=== PATIENT | female | born 1950 | race Caucasian/White ===

== ENCOUNTER 2016-06-24 22:42 | Emergency (ER) | payer MEDICAID ==
[~2016-06-24] VITALS: Ht 175.3 cm; Wt 97.4 kg
[~2016-06-24 22:42] MED LIST: ACET-2723 PO; ALBU1.252 AEROSOL; ALBU8.5H INH; ASPI-557 PO; BENZ1TAB7 PO; BISA10SU8 RECTALLY; BUSP5TAB3 PO; CLOP75TA PO; DOCU-168 PO; DULO30CA2 PO; ERGO500044 PO; FLUT1DIS3 ORAL INH; FURO20TA4 PO; HYDR-4246 PO; LEVO75TA10 PO; LORA10TA62 PO; MAGN800O PO; METF500T4 PO; METH500T6 PO; METO25TA6 PO; NICO1PAT16 TOP; ONDA4TAB4 PO; POLY17PO6 PO; PREG25CA PO; RISP1TAB27 PO; SIME80TA PO; TIOT18CA3 ORAL INH; TOPI50TA57 PO; TRAZ-173 PO; [UNRECOGNIZED DRUG - CODE] TOP
--- OUTSIDE RECORDS SUMMARY | 2016-06-24 22:47 | XMS REPORT ---
Author Author Marlys Zavala [facility] eClinicalWorks Address Unknown Phone Unavailable Care Team Providers Care Cop Winder Name Role Phone Marlys Zavala Unavailable Allergies No Known Allergies Problems No Known Problems Medications No Known Medications Results No Known Results Summary Purpose eClinicalWorks Submission
--- OUTSIDE RECORDS SUMMARY | 2016-06-24 22:47 | XMS REPORT ---
Author Author Delbert Quick Organization [facility] Address [address] [place] [address] Care Team Providers Care Real Estate Intern Name Role Phone Abdelrahman Delbert Unavailable [phone] PROBLEMS Type Condition ICD9-CM Code [id number] Code Onset Dates Condition Status SNOMED Code Problem Hypertension, malignant (essential) 401.0 Active 50362570 Problem Unspecified hypothyroidism 244.9 Active 55313426 Assessment Unspecified hypothyroidism 244.9 Mar, Active 59448558 Problem Hypertension, benign (essential) 401.1 Active 1149772 Problem Bipolar disorder, unspecified 296.80 Active 39580202 ALLERGIES Substance Reaction Event Type Date Status N.K.D.A. Unknown Non Drug Allergy Mar, Unknown SOCIAL HISTORY No smoking Hx information available PLAN OF CARE VITAL SIGNS Height 68.75 in 2014-04-22 Weight 176.4 lbs 2014-04-22 BMI 26.24 kg/m2 2014-04-22 Heart Rate 77 /min 2014-04-22 Temperature 97.5 degrees Fahrenheit 2014-04-22 Blood pressure systolic 170 mm Hg 2014-04-22 Blood pressure diastolic 81 mm Hg 2014-04-22 MEDICATIONS Medication Instructions Dosage Frequency Start Date End Date Duration Status Celexa 20 MG Orally Once a day 1 tablet 24h Active Depakote ER 500 MG Orally 1 in the morning 2 at bed time Active Levothyroxine Sodium 150 MCG Orally Once a day 1 tablet on an empty stomach in the morning 24h Active Lisinopril 5 MG Orally Once a day 1 tablet 24h Active Seroquel 50 MG Orally Once a day 1 tablet at bedtime 24h Active Gabapentin 300 MG Orally Three times a day 1 capsule 8h Active Metoprolol Succinate 25 MG Orally Once a day 1 tablet 24h Active PredniSONE 10 MG Orally Once a day 1 tablet 24h Active BuSpar 15mg 1 tablet 12h Active Hydrocodone-Acetaminophen 10-325 MG Orally every 6 hrs 1 tablet as needed 6h Active RESULTS No Results PROCEDURES Procedure Date Ordered Related Diagnosis Body Site COMPREHEN METABOLIC PANEL Apr 22, 2014 COMPLETE CBC W/AUTO DIFF WBC Apr 22, 2014 URINALYSIS, AUTO, W/O SCOPE Apr 22, 2014 ASSAY THYROID STIM HORMONE Apr 22, 2014 Office Visit, Est Pt., Level 3 Apr 22, 2014 IMMUNIZATIONS No Known Immunizations
--- OUTSIDE RECORDS SUMMARY | 2016-06-24 22:47 | XMS REPORT ---
Author Delbert Ordaz [facility] eClinicalWorks Address Unknown Phone Unavailable Care Team Providers Care Motor Electrician Name Role Phone Delbert Quick CP Unavailable Allergies, Adverse Reactions, Alerts Substance Reaction Event Type N.K.D.A. Info Not Available Non Drug Allergy Problems Problem Type Condition Code Onset Dates Condition Status Problem Unspecified hypothyroidism 244.9 Active Problem Hypertension, benign (essential) 401.1 Active Problem Hypertension, malignant (essential) 401.0 Active Assessment Hypertension, benign (essential) 401.1 Active Problem Bipolar disorder, unspecified 296.80 Active Assessment Unspecified hypothyroidism 244.9 Active Medications Medication Code System Code Instructions Start Date End Date Status Dosage PredniSONE [facility] [address]-95 10 MG Orally Once a day 1 tablet Seroquel [facility] [address]-86 50 MG Orally Once a day 1 tablet at bedtime BuSpar NDC 0 15mg twice a day 1 tablet Hydrocodone-Acetaminophen [facility] [address]-35 10-325 MG Orally every 6 hrs 1 tablet as needed Levothyroxine Sodium [facility] [address]-54 150 MCG Orally Once a day 1 tablet on an empty stomach in the morning Depakote ER [facility] [address]-49 500 MG Orally 1 in the morning 2 at bed time not defined Metoprolol Succinate [facility] [address]-56 25 MG Orally Once a day 1 tablet Gabapentin [facility] [address]-94 300 MG Orally Three times a day 1 capsule Lisinopril [facility] [address]-58 5 MG Orally Once a day 1 tablet Celexa [facility] [address]-98 20 MG Orally Once a day 1 tablet Procedures Procedure Coding System Code Date COMPLETE CBC W/AUTO DIFF WBC CPT-4 09025 Apr 22, 2014 ASSAY THYROID STIM HORMONE CPT-4 69370 Apr 22, 2014 COMPREHEN METABOLIC PANEL CPT-4 58366 Apr 22, 2014 Office Visit, Est Pt., Level 3 CPT-4 90808 Apr 22, 2014 URINALYSIS, AUTO, W/O SCOPE CPT-4 70799 Apr 22, 2014 Vital Signs Date/Time: Apr 22, 2014 BMI 26.24 Index Weight 176.4 lbs Height 68.75 in Blood Pressure Diastolic 81 mm Hg Blood Pressure Systolic 170 mm Hg Temperature 97.5 F Cardiac Monitoring Heart Rate 77 /min Results No Known Results Summary Purpose eClinicalWorks Submission
--- OUTSIDE RECORDS SUMMARY | 2016-06-24 22:47 | XMS REPORT ---
Author Author Delbert Quick Organization [facility] Address [address] [place] [address] Care Team Providers Care Sql Engineer Name Role Phone Abdelrahman Delbert Unavailable [phone] PROBLEMS Type Condition ICD9-CM Code [id number] Code Onset Dates Condition Status SNOMED Code Problem Hypertension, malignant (essential) 401.0 Active 99643514 Problem Unspecified hypothyroidism 244.9 Active 32718423 Assessment Unspecified hypothyroidism 244.9 Mar, Active 17968247 Problem Hypertension, benign (essential) 401.1 Active 9011738 Problem Bipolar disorder, unspecified 296.80 Active 99792681 ALLERGIES Substance Reaction Event Type Date Status [...]
[2016-06-24 22:48] VITALS: Ht 175.3 cm; Wt 97.4 kg
--- OUTSIDE RECORDS SUMMARY | 2016-06-24 22:48 | XMS REPORT ---
Author Author Delbert Quick Organization [facility] Address [address] [place] [address] Care Team Providers Care Computer Lab Assistant Name Role Phone Abdelrahman Delbert Unavailable [phone] PROBLEMS Type Condition ICD9-CM Code SEO39-TD Code Onset Dates Condition Status SNOMED Code Problem Hypertension, malignant (essential) 401.0 Active 86558086 Problem Unspecified hypothyroidism 244.9 Active 32642422 Assessment Unspecified hypothyroidism 244.9 Mar, Active 71730161 Problem Hypertension, benign (essential) 401.1 Active 5042479 Problem Bipolar disorder, unspecified 296.80 Active 33827622 ALLERGIES Substance Reaction Event Type Date Status [...]
--- OUTSIDE RECORDS SUMMARY | 2016-06-24 22:48 | XMS REPORT ---
Author Author Delbert Quick Organization [facility] Address [address] [place] [address] Care Team Providers Care Scratch Polisher Name Role Phone Abdelrahman Delbert Unavailable [phone] PROBLEMS Type Condition ICD9-CM Code WHB55-CC Code Onset Dates Condition Status SNOMED Code Problem Hypertension, malignant (essential) 401.0 Active 57747067 Problem Unspecified hypothyroidism 244.9 Active 32899789 Assessment Unspecified hypothyroidism 244.9 Mar, Active 78682435 Problem Hypertension, benign (essential) 401.1 Active 8553703 Problem Bipolar disorder, unspecified 296.80 Active 47993525 ALLERGIES Substance Reaction Event Type Date Status [...]
--- OUTSIDE RECORDS SUMMARY | 2016-06-24 22:49 | XMS REPORT ---
Author Author Delbert Quick Organization [facility] Address [address] [place] [address] Care Team Providers Care Diesel Engine Specialist Name Role Phone Abdelrahman Delbert Unavailable [phone] PROBLEMS Type Condition ICD9-CM Code UZQ70-HQ Code Onset Dates Condition Status SNOMED Code Problem Hypertension, malignant (essential) 401.0 Active 47057389 Problem Unspecified hypothyroidism 244.9 Active 71343902 Assessment Unspecified hypothyroidism 244.9 Mar, Active 99439426 Problem Hypertension, benign (essential) 401.1 Active 5371470 Problem Bipolar disorder, unspecified 296.80 Active 28139302 ALLERGIES Substance Reaction Event Type Date Status [...]
--- OUTSIDE RECORDS SUMMARY | 2016-06-24 22:49 | XMS REPORT | Continuity of Care Document ---
Author Author [facility] Organization [facility] Address Unknown Phone Unavailable Allergies Active Description Code Type Severity Reaction Onset Reported/Identified Relationship to Patient Clinical Status Yes No Known Allergies No Known Allergies Drug Allergy Unknown N/A 03/20/2014 Medications Problems Date Dx Coded Attending Type Code Diagnosis Diagnosed By 11/06/2015 Ania Ruiz MD E11.9 TYPE 2 DIABETES MELLITUS WITHOUT COMPLICATIONS 11/06/2015 Ania Ruiz MD E78.5 HYPERLIPIDEMIA, UNSPECIFIED 11/06/2015 Ania Ruiz MD F17.200 NICOTINE DEPENDENCE, UNSPECIFIED, UNCOMPLICATED 11/06/2015 Ania Ruiz MD F31.9 BIPOLAR DISORDER, UNSPECIFIED 11/06/2015 Ania Ruiz MD I10 ESSENTIAL (PRIMARY) HYPERTENSION 11/06/2015 Ania Ruiz MD I25.10 ATHSCL HEART DISEASE OF [place] CORONARY ARTERY W/O 11/06/2015 Ania Ruiz MD I25.5 ISCHEMIC CARDIOMYOPATHY 11/06/2015 Ania Ruiz MD I35.2 NONRHEUMATIC AORTIC (VALVE) STENOSIS WITH INSUFFIC 11/06/2015 Ania Ruiz MD J44.1 CHRONIC OBSTRUCTIVE PULMONARY DISEASE W ( ACUTE) EX 11/06/2015 Ania Ruiz MD J96.21 ACUTE AND CHRONIC RESPIRATORY FAILURE WITH HYPOXIA 11/06/2015 Ania Ruiz MD R07.9 CHEST PAIN, UNSPECIFIED 11/06/2015 Ania Ruiz MD Z86.711 PERSONAL HISTORY OF PULMONARY EMBOLISM 11/06/2015 Ania Ruiz MD Z86.718 PERSONAL HISTORY OF OTHER VENOUS THROMBOSIS AND EM 11/06/2015 Ania Ruiz MD Z95.1 PRESENCE OF AORTOCORONARY BYPASS GRAFT 11/06/2015 Ania Ruiz MD Z99.81 DEPENDENCE ON SUPPLEMENTAL OXYGEN Procedures Code Description Performed By Performed On 9Y409E5 MEASURE OF CARDIAC SAMPL PRESSURE, L HEART, PERC Joseph CHAMBERS, Ass Z 11/06/2015 [id number] FLUOROSCOPY OF MULT COR ART USING L OSM CONTRAST Joseph CHAMBERS, Ass Z 11/06/2015 [id number] FLUOROSCOPY OF LEFT HEART USING LOW OSMOLAR CONTRA Joseph CHAMBERS, Ass Z 11/06/2015 [id number] FLUOROSCOPY OF L INT MAMM GRAFT USING L OSM CONTRA Joseph CHAMBERS, [facility] Z 11/06/2015 [id number] FLUOROSCOPY OF THORACIC AORTA USING LOW OSMOLAR CO Joseph CHAMBERS, [facility] 11/06/2015 Results Test Result Range TROPONIN I BEDSIDE - 03/20/14 11:56 METHOD Bedside TROPONIN I < 0.04 ng/mL < 0.11 CHEM/HEM PROFILE-BEDSIDE - 11/06/15 21:05 POTASSIUM 3.9 mmol/L 3.5-5.3 METHOD Bedside ANION GAP 17 mmol/L 10-20 METHOD Bedside GLUCOSE 140 mg/dL 70-99 BLOOD UREA NITROGEN 12 mg/dL 7-20 CREATININE 1.3 mg/dL 0.6-1.0 HEMOGLOBIN 13.9 gm/dL 12.0-16.0 HEMATOCRIT 41.0 % 37.0-47.0 SODIUM 142 mmol/L 135-148 CHLORIDE 103 mmol/L 98-110 CARBON DIOXIDE 27 mmol/L 21-32 CALCIUM IONIZED 5.3 mg/dL 4.5-5.3 TROPONIN I BEDSIDE - 11/06/15 21:06 METHOD Bedside TROPONIN I < 0.04 ng/mL < 0.11 CBC W/DIFF - 11/06/15 21:29 BASOPHIL # 0.1 k/cumm 0.0-0.2 BASOPHIL % 1 % 0-1 EOSINOPHIL # 0.2 k/cumm 0.1-0.5 EOSINOPHIL % 3 % 2-4 GRANULOCYTE # 3.5 k/cumm 2.0-9.0 GRANULOCYTE % 60 % 50-75 LYMPHOCYTE # 1.5 k/cumm 1.0-4.0 LYMPHOCYTE % 26 % 20-30 MEAN CELL HGB 31.3 pg 27.0-33.0 MEAN CELL HGB CONCENTRATION 32.9 g/dL 32.0-37.0 MEAN CELL VOLUME 95.3 fl 80.0-100.0 MONOCYTE # 0.6 k/cumm 0.1-1.0 MONOCYTE % 10 % 4-6 RED BLOOD CELL 4.44 m/cumm 4.00-6.00 RED CELL DISTRIBUTION WIDTH 14.0 % 11.0- 15.6 WHITE BLOOD CELL 5.9 k/cumm 5.0-10.0 HEMOGLOBIN 13.9 gm/dL 12.0-16.0 HEMATOCRIT 42.3 % 37.0-47.0 PLATELET COUNT 153 k/cumm 150-400 HEPATIC FUNCTION PANEL - 11/06/15 21:29 BILI UNCONJUGATED 0.1 mg/dL 0.0-0.7 AST/SGOT 18 Units/L 10-37 ALT/SGPT 20 Units/L < 66 TOTAL PROTEIN 7.4 gm/dL 6.4-8.2 ALBUMIN 3.8 gm/dL 3.4-5.0 BILI TOTAL 0.2 mg/dL 0.0-1.0 ALKALINE PHOSPHATASE TOTAL 72 IU/L 45- 117 BILI CONJUGATED < 0.1 mg/dL 0.0-0.3 GLUCOSE (POC) - 11/07/15 05:44 GLUCOSE (POC) 116 mg/dL 70-99 LIPID PANEL - 11/07/15 06:26 CHOLESTEROL/HDL RATIO 2.4 < 5.0 LDL CHOLESTEROL 44 mg/dL < 100 VLDL CHOLESTEROL 25 mg/dL < 30 TRIGLYCERIDES 124 mg/dL < 150 CHOLESTEROL 117 mg/dL < 200 HDL CHOLESTEROL 48 mg/dL > 39 TROPONIN I - 11/07/15 06:26 TROPONIN I 0.03 ng/mL < 0.07 VIRUS RESPIRATORY PROFILE - 11/07/15 11:17 Microbiology CBC - 11/08/15 06:35 MEAN CELL HGB 31.3 pg 27.0-33.0 MEAN CELL HGB CONCENTRATION 33.7 g/dL 32.0-37.0 MEAN CELL VOLUME 92.8 fl 80.0-100.0 RED BLOOD CELL 4.19 m/cumm 4.00-6.00 RED CELL DISTRIBUTION WIDTH 14.0 % 11.0- 15.6 WHITE BLOOD CELL 6.4 k/cumm 5.0-10.0 HEMOGLOBIN 13.1 gm/dL 12.0-16.0 HEMATOCRIT 38.9 % 37.0-47.0 PLATELET COUNT 117 k/cumm 150-400 METABOLIC PANEL, BASIC - 11/08/15 06:35 POTASSIUM 4.7 mmol/L 3.5-5.3 EST GFR (MDRD) 50 mL/min > 59 ANION GAP 7 mmol/L 5-15 EST CrCl (CG) > 60 mL/min > 59 GLUCOSE 118 mg/dL 70-99 CALCIUM 8.4 mg/dL 8.5-10.1 BLOOD UREA NITROGEN 13 mg/dL 7-20 CREATININE 1.1 mg/dL 0.6-1.0 SODIUM 144 mmol/L 135-148 CHLORIDE 113 mmol/L 98-110 CARBON DIOXIDE 24 mmol/L -32 GRAM STAIN SPUTUM - SPUTUM CULTURE - 11/08/15 16:45 Microbiology METABOLIC PANEL, BASIC - 11/09/15 05:22 POTASSIUM 4.2 mmol/L 3.5-5.3 EST GFR (MDRD) 45 mL/min > 59 ANION GAP 9 mmol/L 5-15 EST CrCl (CG) 55 mL/min > 59 GLUCOSE 227 mg/dL 70-99 CALCIUM 8.9 mg/dL 8.5-10.1 BLOOD UREA NITROGEN 15 mg/dL 7-20 CREATININE 1.2 mg/dL 0.6-1.0 SODIUM 140 mmol/L 135-148 CHLORIDE 107 mmol/L 98-110 CARBON DIOXIDE 24 mmol/L 21-32 CBC - 11/09/15 05:22 MEAN CELL HGB 30.6 pg 27.0-33.0 MEAN CELL HGB CONCENTRATION 32.0 g/dL 32.0-37.0 MEAN CELL VOLUME 95.6 fl 80.0-100.0 RED BLOOD CELL 4.57 m/cumm 4.00-6.00 RED CELL DISTRIBUTION WIDTH 14.0 % 11.0- 15.6 WHITE BLOOD CELL 5.9 k/cumm 5.0-10.0 HEMOGLOBIN 14.0 gm/dL 12.0-16.0 HEMATOCRIT 43.7 % 37.0-47.0 PLATELET COUNT 156 k/cumm 150-400 Encounters ACCT No. Visit Date/Time Discharge Status Pt. Type Provider Facility Loc./Unit Complaint [id number] 11/10/2015 21:36:00 2015 23:18:00 DIS Emergency Panda Bustillo DO [facility] W.RAJAT [id number] 11/06/2015 22:23:00 2015 13:38:00 DIS Inpatient Joseph CHAMBERS, Assem Z [facility] W.3TN [id number] 09/21/2015 17:18:00 2015 18:26:00 DIS [id number]2015 10:10:00 2015 12:36:00 DIS Emergency Rayray CHAMBERS, Evette Latham [facility] [id number] 03/20/2014 10:10:00 2013 12:50:00 DIS Emergency Ector ROMAN, Connor Hobbs [facility] WRAJAT
--- OUTSIDE RECORDS SUMMARY | 2016-06-24 22:49 | XMS REPORT ---
Author Author Delbert Quick Organization [facility] Address [address] [place] [address] Care Team Providers Care Die Drawing Checker Name Role Phone Abdelrahman Delbert Unavailable [phone] PROBLEMS Type Condition ICD9-CM Code HZG18-DS Code Onset Dates Condition Status SNOMED Code Problem Hypertension, malignant (essential) 401.0 Active 38625834 Problem Unspecified hypothyroidism 244.9 Active 25864851 Assessment Unspecified hypothyroidism 244.9 Mar, Active 73245312 Problem Hypertension, benign (essential) 401.1 Active 4455836 Problem Bipolar disorder, unspecified 296.80 Active 79505322 ALLERGIES Substance Reaction Event Type Date Status [...]
--- OUTSIDE RECORDS SUMMARY | 2016-06-24 22:50 | XMS REPORT ---
Author Delbert Ordaz Organization [employer] Address Unknown Phone Unavailable Care Team Providers Care Stenographer Secretary Name Role Phone Delbert Quick CP Unavailable Allergies No Known Allergies Problems Problem Type Condition ICD-9 Code Onset Dates Condition Status Problem Unspecified hypothyroidism 244.9 Active Problem Hypertension, benign (essential) 401.1 Active Problem Hypertension, malignant (essential) 401.0 Active Problem Bipolar disorder, unspecified 296.80 Active Medications No Known Medications Results No Known Results Summary Purpose eClinicalWorks Submission
--- OUTSIDE RECORDS SUMMARY | 2016-06-24 22:50 | XMS REPORT ---
Author Author Delbert Quick Organization [facility] Address [address] [place] [address] Care Team Providers Care Manufacturing Management Associate Name Role Phone Abdelrahman Delbert Unavailable [phone] PROBLEMS Type Condition ICD9-CM Code LAW98-OM Code Onset Dates Condition Status SNOMED Code Problem Hypertension, malignant (essential) 401.0 Active 85335879 Problem Unspecified hypothyroidism 244.9 Active 01564013 Assessment Unspecified hypothyroidism 244.9 Mar, Active 16721371 Problem Hypertension, benign (essential) 401.1 Active 9364010 Problem Bipolar disorder, unspecified 296.80 Active 01653250 ALLERGIES Substance Reaction Event Type Date Status [...]
--- OUTSIDE RECORDS SUMMARY | 2016-06-24 22:50 | XMS REPORT ---
Author Author Delbert Quick Organization [facility] Address [address] [place] [address] Care Team Providers Care Sow Farm Manager Name Role Phone Abdelrahman Delbert Unavailable [phone] PROBLEMS Type Condition ICD9-CM Code UYB63-WR Code Onset Dates Condition Status SNOMED Code Problem Hypertension, malignant (essential) 401.0 Active 02823397 Problem Unspecified hypothyroidism 244.9 Active 13502643 Assessment Unspecified hypothyroidism 244.9 Mar, Active 23879716 Problem Hypertension, benign (essential) 401.1 Active 1041868 Problem Bipolar disorder, unspecified 296.80 Active 11096762 ALLERGIES Substance Reaction Event Type Date Status [...]
--- OUTSIDE RECORDS SUMMARY | 2016-06-24 22:51 | XMS REPORT ---
Author Author Delbert Quick Organization [facility] Address [address] [place] [address] Care Team Providers Care Level Vial Curvature Gauger Name Role Phone Abdelrahman Delbert Unavailable [phone] PROBLEMS Type Condition ICD9-CM Code QYC38-KA Code Onset Dates Condition Status SNOMED Code Problem Hypertension, malignant (essential) 401.0 Active 91758884 Problem Unspecified hypothyroidism 244.9 Active 65538827 Assessment Unspecified hypothyroidism 244.9 Mar, Active 39092334 Problem Hypertension, benign (essential) 401.1 Active 6134774 Problem Bipolar disorder, unspecified 296.80 Active 80606717 ALLERGIES Substance Reaction Event Type Date Status [...]
--- OUTSIDE RECORDS SUMMARY | 2016-06-24 22:52 | XMS REPORT ---
Author Delbert Ordaz Organization [employer] Address Unknown Phone Unavailable Care Team Providers Care Healthcare Technician Name Role Phone Delbert Quick CP Unavailable Allergies No Known Allergies Problems Problem Type Condition ICD-9 Code Onset Dates Condition Status Problem Unspecified hypothyroidism 244.9 Active Problem Hypertension, benign (essential) 401.1 Active Problem Hypertension, malignant (essential) 401.0 Active Problem Bipolar disorder, unspecified 296.80 Active Medications No Known Medications Results No Known Results Summary Purpose eClinicalWorks Submission
--- OUTSIDE RECORDS SUMMARY | 2016-06-24 22:52 | XMS REPORT ---
Author Author Delbert Quick Organization [facility] Address [address] [place] [address] Care Team Providers Care Client Delivery Specialist Name Role Phone Abdelrahman Delbert Unavailable [phone] PROBLEMS Type Condition ICD9-CM Code XTG51-ZV Code Onset Dates Condition Status SNOMED Code Problem Hypertension, malignant (essential) 401.0 Active 85124055 Problem Unspecified hypothyroidism 244.9 Active 00669227 Assessment Unspecified hypothyroidism 244.9 Mar, Active 17694233 Problem Hypertension, benign (essential) 401.1 Active 6136748 Problem Bipolar disorder, unspecified 296.80 Active 77424675 ALLERGIES Substance Reaction Event Type Date Status [...]
--- OUTSIDE RECORDS SUMMARY | 2016-06-24 22:52 | XMS REPORT ---
Author Author Delbert Quick Organization [facility] Address [address] [place] [address] Care Team Providers Care Value Stream Manager Name Role Phone Abdelrahman Delbert Unavailable [phone] PROBLEMS Type Condition ICD9-CM Code CGE21-NR Code Onset Dates Condition Status SNOMED Code Problem Hypertension, malignant (essential) 401.0 Active 69577218 Problem Unspecified hypothyroidism 244.9 Active 85820593 Assessment Unspecified hypothyroidism 244.9 Mar, Active 69437046 Problem Hypertension, benign (essential) 401.1 Active 6060827 Problem Bipolar disorder, unspecified 296.80 Active 05322432 ALLERGIES Substance Reaction Event Type Date Status [...]
--- OUTSIDE RECORDS SUMMARY | 2016-06-24 22:53 | XMS REPORT ---
Author Author Delbert Quick Organization [facility] Address [address] [place] [address] Care Team Providers Care Director Of Student Life Name Role Phone Abdelrahman Delbert Unavailable [phone] PROBLEMS Type Condition ICD9-CM Code VIC97-FP Code Onset Dates Condition Status SNOMED Code Problem Hypertension, malignant (essential) 401.0 Active 33589929 Problem Unspecified hypothyroidism 244.9 Active 63262546 Assessment Unspecified hypothyroidism 244.9 Mar, Active 01688279 Problem Hypertension, benign (essential) 401.1 Active 1635267 Problem Bipolar disorder, unspecified 296.80 Active 08798834 ALLERGIES Substance Reaction Event Type Date Status [...]
--- OUTSIDE RECORDS SUMMARY | 2016-06-24 22:53 | XMS REPORT ---
Author Author Delbert Quick Organization [facility] Address [address] [place] [address] Care Team Providers Care Distributor Advertising Material Name Role Phone Abdelrahman Delbert Unavailable [phone] PROBLEMS Type Condition ICD9-CM Code BOS38-EU Code Onset Dates Condition Status SNOMED Code Problem Hypertension, malignant (essential) 401.0 Active 09484442 Problem Unspecified hypothyroidism 244.9 Active 72819560 Assessment Unspecified hypothyroidism 244.9 Mar, Active 32064146 Problem Hypertension, benign (essential) 401.1 Active 3403701 Problem Bipolar disorder, unspecified 296.80 Active 54323462 ALLERGIES Substance Reaction Event Type Date Status [...]
--- OUTSIDE RECORDS SUMMARY | 2016-06-24 22:55 | XMS REPORT ---
Author Author Delbert Quick Organization [facility] Address [address] [place] [address] Care Team Providers Care Solar Engineer Name Role Phone Abdelrahman Delbert Unavailable [phone] PROBLEMS Type Condition ICD9-CM Code XOU99-ZG Code Onset Dates Condition Status SNOMED Code Problem Hypertension, malignant (essential) 401.0 Active 20957714 Problem Unspecified hypothyroidism 244.9 Active 66996655 Assessment Unspecified hypothyroidism 244.9 Mar, Active 31976295 Problem Hypertension, benign (essential) 401.1 Active 1779811 Problem Bipolar disorder, unspecified 296.80 Active 88889158 ALLERGIES Substance Reaction Event Type Date Status [...]
--- OUTSIDE RECORDS SUMMARY | 2016-06-24 22:55 | XMS REPORT ---
Author Author Delbert Quick Organization [facility] Address [address] [place] [address] Care Team Providers Care Helix Coil Winder Name Role Phone Abdelrahman Delbert Unavailable [phone] PROBLEMS Type Condition ICD9-CM Code RVG30-NG Code Onset Dates Condition Status SNOMED Code Problem Hypertension, malignant (essential) 401.0 Active 72088408 Problem Unspecified hypothyroidism 244.9 Active 17204362 Assessment Unspecified hypothyroidism 244.9 Mar, Active 01862645 Problem Hypertension, benign (essential) 401.1 Active 6824564 Problem Bipolar disorder, unspecified 296.80 Active 90404370 ALLERGIES Substance Reaction Event Type Date Status [...]
--- OUTSIDE RECORDS SUMMARY | 2016-06-24 22:55 | XMS REPORT ---
Author Delbert Ordaz Organization [employer] Address Unknown Phone Unavailable Care Team Providers Care Sugar Grinder Name Role Phone Delbert Quick CP Unavailable Allergies No Known Allergies Problems Problem Type Condition ICD-9 Code Onset Dates Condition Status Problem Unspecified hypothyroidism 244.9 Active Problem Hypertension, benign (essential) 401.1 Active Problem Hypertension, malignant (essential) 401.0 Active Problem Bipolar disorder, unspecified 296.80 Active Assessment Unspecified hypothyroidism 244.9 Active Medications Medication Code System Code Instructions Start Date End Date Status Dosage Levothyroxine Sodium [facility] [address]-15 150 MCG Orally Once a day 1 tablet on an empty stomach in the morning Lisinopril [facility] [address]-08 5 MG Orally Once a day 1 tablet Gabapentin [facility] [address]-52 300 MG Orally Three times a day 1 capsule Metoprolol Succinate [facility] [address]-99 25 MG Orally Once a day 1 tablet Results No Known Results Summary Purpose eClinicalWorks Submission
--- OUTSIDE RECORDS SUMMARY | 2016-06-24 22:56 | XMS REPORT ---
Author Author Delbert Quick Organization [facility] Address [address] [place] [address] Care Team Providers Care Medical Office Manager Name Role Phone Abdelrahman Delbert Unavailable [phone] PROBLEMS Type Condition ICD9-CM Code JNL73-NI Code Onset Dates Condition Status SNOMED Code Problem Hypertension, malignant (essential) 401.0 Active 95221519 Problem Unspecified hypothyroidism 244.9 Active 69812803 Assessment Unspecified hypothyroidism 244.9 Mar, Active 70969598 Problem Hypertension, benign (essential) 401.1 Active 1436914 Problem Bipolar disorder, unspecified 296.80 Active 09781507 ALLERGIES Substance Reaction Event Type Date Status [...]
--- OUTSIDE RECORDS SUMMARY | 2016-06-24 22:56 | XMS REPORT ---
Author Author Delbert Quick Organization [facility] Address [address] [place] [address] Care Team Providers Care Baggage And Mail Agent Name Role Phone Abdelrahman Delbert Unavailable [phone] PROBLEMS Type Condition ICD9-CM Code NEN11-XY Code Onset Dates Condition Status SNOMED Code Problem Hypertension, malignant (essential) 401.0 Active 02525489 Problem Unspecified hypothyroidism 244.9 Active 63786961 Assessment Unspecified hypothyroidism 244.9 Mar, Active 69093619 Problem Hypertension, benign (essential) 401.1 Active 8837907 Problem Bipolar disorder, unspecified 296.80 Active 18563873 ALLERGIES Substance Reaction Event Type Date Status [...]
--- OUTSIDE RECORDS SUMMARY | 2016-06-24 22:57 | XMS REPORT ---
Author Author Delbert Quick Organization [facility] Address [address] [place] [address] Care Team Providers Care Roving Winder Name Role Phone Abdelrahman Delbert Unavailable [phone] PROBLEMS Type Condition ICD9-CM Code ZFG03-LQ Code Onset Dates Condition Status SNOMED Code Problem Hypertension, malignant (essential) 401.0 Active 46895097 Problem Unspecified hypothyroidism 244.9 Active 06601783 Assessment Unspecified hypothyroidism 244.9 Mar, Active 61724207 Problem Hypertension, benign (essential) 401.1 Active 0303683 Problem Bipolar disorder, unspecified 296.80 Active 68035810 ALLERGIES Substance Reaction Event Type Date Status [...]
--- OUTSIDE RECORDS SUMMARY | 2016-06-24 22:58 | XMS REPORT ---
Author Author Delbert Quick Organization [facility] Address [address] [place] [address] Care Team Providers Care Secondary Art Teacher Name Role Phone Abdelrahman Delbert Unavailable [phone] PROBLEMS Type Condition ICD9-CM Code ROL65-ZV Code Onset Dates Condition Status SNOMED Code Problem Hypertension, malignant (essential) 401.0 Active 38975346 Problem Unspecified hypothyroidism 244.9 Active 53490471 Assessment Unspecified hypothyroidism 244.9 Mar, Active 19699576 Problem Hypertension, benign (essential) 401.1 Active 5616485 Problem Bipolar disorder, unspecified 296.80 Active 50539585 ALLERGIES Substance Reaction Event Type Date Status [...]
--- OUTSIDE RECORDS SUMMARY | 2016-06-24 22:58 | XMS REPORT ---
Author Author Delbert Quick Organization [facility] Address [address] [place] [address] Care Team Providers Care [address] Railway Line Installer Name Role Phone Abdelrahman Delbert Unavailable [phone] PROBLEMS Type Condition ICD9-CM Code WCY53-IO Code Onset Dates Condition Status SNOMED Code Problem Hypertension, malignant (essential) 401.0 Active 73413760 Problem Unspecified hypothyroidism 244.9 Active 22087546 Assessment Unspecified hypothyroidism 244.9 Mar, Active 45600168 Problem Hypertension, benign (essential) 401.1 Active 2868199 Problem Bipolar disorder, unspecified 296.80 Active 08584915 ALLERGIES Substance Reaction Event Type Date Status [...]
--- OUTSIDE RECORDS SUMMARY | 2016-06-24 22:59 | XMS REPORT | Referral Summary ---
Author Author [facility] Organization [facility] Address Unknown Phone Unavailable Care Team Providers Care Asian Studies Program Chair Name Role Phone Pao Marquez Primary Care Physician [phone] Encounter VC Date(s): 02/06/16 - 02/06/16 [facility] [address] [place] [address] Discharge Disposition: 01-Home or Self Care Attending Physician: Gregg Ruiz MD Admitting Physician: Gregg Ruiz MD Vital Signs Most recent to 1 oldest [Reference Range]: Temperature Temporal 36.3 degC Artery [36.3-37.8 (02/06/16 7:28 AM) degC] Peripheral Pulse 66 bpm Rate [60-100 bpm] (02/06/16 12:00 PM) Respiratory Rate 18 br/min [14-20 br/min] (02/06/16 12:00 PM) Blood Pressure 137/75 mmHg [90-140/60-90 mmHg] (02/06/16 12:00 PM) SpO2 94 % (02/06/16 12:00 PM) Problem List Condition Effective Dates Status Health Status Informant Bipolar 1 Active patient disorder(Confirmed) COPD (chronic Active patient obstructive pulmonary disease)(Confirmed) Hypertension(Confirm Active patient ed) Hypothyroid(Confirme Active patient d) Allergies, Adverse Reactions, Alerts No Known Allergies Medications albuterol 0 Refill(s) Start Date: 03/01/14 Status: Ordered atorvastatin 40 mg oral tablet 40 mg 1 tabs, Oral, Daily, # 30 tabs, 0 Refill(s) Start Date: 02/06/16 Status: Ordered benztropine 1 mg oral tablet 1 mg 1 tabs, Oral, BID, # 180 tabs, 0 Refill(s) Start Date: 02/06/16 Status: Ordered BuSpar Oral, TID, 0 Refill(s) Start Date: 03/01/14 Status: Ordered calcium carbonate 2,000 mg, Chewed, q4hr, GERD/Heartburn, 0 Refill(s) Start Date: 02/06/16 Status: Ordered Claritin 10 mg, Oral, Daily, 0 Refill(s) Start Date: 02/06/16 Status: Ordered cyclobenzaprine 10 mg oral tablet 1 tabs, Oral, q8hr, as needed for spasm, # 15 tabs, 0 Refill(s) Start Date: 03/01/14 Status: Ordered Cymbalta 30 mg oral delayed release capsule 30 mg 1 caps, Oral, BID, do not crush or chew, # 180 caps, 0 Refill(s) Start Date: 02/06/16 Status: Ordered Lasix 20 mg oral tablet 20 mg 1 tabs, Oral, Daily, # 30 tabs, 0 Refill(s) Start Date: 02/06/16 Status: Ordered metFORMIN 500 mg oral tablet 500 mg 1 tabs, Oral, BID, Do not take today 02/06/16 or tomorrow 01/28/16 to protect your kidneys, resume takin ajay 01/29/16, # 180 tabs, 0 Refill(s) Start Date: 02/06/16 Status: Ordered metoprolol tartrate 25 mg oral tablet 25 mg 1 tabs, Oral, BID, # 180 tabs, 0 Refill(s) Start Date: 02/06/16 Status: Ordered ProAir HFA 90 mcg/inh inhalation aerosol 180 mcg 2 puffs, Inhalation, q4hr, Bronchospasms, 0 Refill(s) Start Date: 02/06/16 Status: Ordered risperiDONE 3 mg oral tablet 3 mg 1 tabs, Oral, Daily, # 30 tabs, 0 Refill(s) Start Date: 02/06/16 Status: Ordered Spiriva mcg, Inhalation, Daily, 0 Refill(s) Start Date: 03/01/14 Status: Ordered Synthroid Oral, Daily, 0 Refill(s) Start Date: 03/01/14 Status: Ordered topiramate 50 mg oral tablet 50 mg 1 tabs, Oral, BID, # 180 tabs, 0 Refill(s) Start Date: 02/06/16 Status: Ordered traZODone 150 mg oral tablet 150 mg 1 tabs, Oral, Bedtime (once a day), # 30 tabs, 0 Refill(s) Start Date: 02/06/16 Status: Ordered Vitamin D2 200 Intl_Units, Oral, Daily, 0 Refill(s) Start Date: 02/06/16 Status: Ordered Results Hematology Most recent to 1 oldest [Reference Range]: WBC [4.8-10.8 7.9 10*3/uL 10*3/uL] (02/06/16 7:37 AM) RBC [4.00-5.20] 4.72 (02/06/16 7:37 AM) Hgb [12.0-16.0 14.9 gm/dL gm/dL] (02/06/16 7:37 AM) Hct [37.0-47.0 %] 45.1 % (02/06/16 7:37 AM) MCV [82.0-99.0 fL] 95.6 fL (02/06/16 7:37 AM) MCH [27.0-32.0 pg] 31.6 pg (02/06/16 7:37 AM) MCHC [32.0-36.0 33.0 gm/dL gm/dL] (02/06/16 7:37 AM) RDW [11.5-14.5 %] 14.4 % (02/06/16 7:37 AM) Platelet [150-400 181 10*3/uL 10*3/uL] (02/06/16 7:37 AM) MPV [9.4-12.4 fL] 12.0 fL (02/06/16 7:37 AM) Chemistry Most recent to 1 oldest [Reference Range]: Sodium Lvl [136-144 134 mEq/L mEq/L] *LOW* (02/06/16 7:37 AM) Potassium Lvl 4.1 mEq/L 1 [3.6-5.1 mEq/L] (02/06/16 7:37 AM) Chloride [99-109 104 mEq/L mEq/L] (02/06/16 7:37 AM) CO2 [22-32 mEq/L] 19 mEq/L *LOW* (02/06/16 7:37 AM) AGAP [3-20] 11 (02/06/16 7:37 AM) BUN [4-20 mg/dL] 21 mg/dL *HI* (02/06/16 7:37 AM) Glucose Lvl [70-100 145 mg/dL mg/dL] *HI* (02/06/16 7:37 AM) Creatinine Lvl 1.00 mg/dL [0.44-1.03 mg/dL] (02/06/16 7:37 AM) eGFR [>60] 56 2 *ABN* (02/06/16 7:37 AM) Calcium Lvl 9.2 mg/dL [8.6-10.0 mg/dL] (02/06/16 7:37 AM) 1Result Comment: Hemolyzed specimen. The following tests may be affected: ALT, AST, Ammonia, Iron, Potassium, LDH, Amylase, CPK, and Total Bilirubin. 2Result Comment: Multiply eGFR results by 1.21 for race. Immunizations No data available for this section Procedures Procedure Date Related Diagnosis Body Site Catheterization Heart Lower Extremity 02/06/16 Angiography (Right, Groin)1 c section Gallbladder skin graft Tonsils and adenoids 1auto-populated from documented surgical case Social History Social History Type Response Smoking Status Current every day smoker; Type: Cigarettes Assessment and Plan No data available for this section
--- OUTSIDE RECORDS SUMMARY | 2016-06-24 22:59 | XMS REPORT ---
Author Author Delbert Quick Organization [facility] Address [address] [place] [address] Care Team Providers Care Survival Equipment Repairer Name Role Phone Abdelrahman Delbert Unavailable [phone] PROBLEMS Type Condition ICD9-CM Code ELB85-ND Code Onset Dates Condition Status SNOMED Code Problem Hypertension, malignant (essential) 401.0 Active 40455433 Problem Unspecified hypothyroidism 244.9 Active 31654864 Assessment Unspecified hypothyroidism 244.9 Mar, Active 02710430 Problem Hypertension, benign (essential) 401.1 Active 1831598 Problem Bipolar disorder, unspecified 296.80 Active 59316320 ALLERGIES Substance Reaction Event Type Date Status [...]
--- OUTSIDE RECORDS SUMMARY | 2016-06-24 23:00 | XMS REPORT ---
Author Author Delbert Quick Organization [facility] Address [address] [place] [address] Care Team Providers Care Data Miner Name Role Phone Abdelrahman Delbert Unavailable [phone] PROBLEMS Type Condition ICD9-CM Code UZC61-BS Code Onset Dates Condition Status SNOMED Code Problem Hypertension, malignant (essential) 401.0 Active 98079283 Problem Unspecified hypothyroidism 244.9 Active 40954777 Assessment Unspecified hypothyroidism 244.9 Mar, Active 20299994 Problem Hypertension, benign (essential) 401.1 Active 5730275 Problem Bipolar disorder, unspecified 296.80 Active 05751893 ALLERGIES Substance Reaction Event Type Date Status [...]
--- OUTSIDE RECORDS SUMMARY | 2016-06-24 23:01 | XMS REPORT ---
Author Author Delbert Quick Organization [facility] Address [address] [place] [address] Care Team Providers Care Lead Warehouse Associate Name Role Phone Abdelrahman Delbert Unavailable [phone] PROBLEMS Type Condition ICD9-CM Code WUQ69-VU Code Onset Dates Condition Status SNOMED Code Problem Hypertension, malignant (essential) 401.0 Active 18680855 Problem Unspecified hypothyroidism 244.9 Active 29087205 Assessment Unspecified hypothyroidism 244.9 Mar, Active 26715366 Problem Hypertension, benign (essential) 401.1 Active 5387437 Problem Bipolar disorder, unspecified 296.80 Active 78899885 ALLERGIES Substance Reaction Event Type Date Status [...]
--- OUTSIDE RECORDS SUMMARY | 2016-06-24 23:01 | XMS REPORT ---
Author Author Delbert Quick Organization [facility] Address [address] [place] [address] Care Team Providers Care [place]stone Machine Operator Name Role Phone Abdelrahman Delbert Unavailable [phone] PROBLEMS Type Condition ICD9-CM Code JEU15-JD Code Onset Dates Condition Status SNOMED Code Problem Hypertension, malignant (essential) 401.0 Active 85942933 Problem Unspecified hypothyroidism 244.9 Active 18755939 Assessment Unspecified hypothyroidism 244.9 Mar, Active 22440364 Problem Hypertension, benign (essential) 401.1 Active 8176959 Problem Bipolar disorder, unspecified 296.80 Active 63791442 ALLERGIES Substance Reaction Event Type Date Status [...]
--- OUTSIDE RECORDS SUMMARY | 2016-06-24 23:02 | XMS REPORT ---
Author Author Delbert Quick Organization [facility] Address [address] [place] [address] Care Team Providers Care Marketing Database Analyst Name Role Phone Abdelrahman Delbert Unavailable [phone] PROBLEMS Type Condition ICD9-CM Code EZC75-VZ Code Onset Dates Condition Status SNOMED Code Problem Hypertension, malignant (essential) 401.0 Active 93077228 Problem Unspecified hypothyroidism 244.9 Active 71528244 Assessment Unspecified hypothyroidism 244.9 Mar, Active 63273596 Problem Hypertension, benign (essential) 401.1 Active 3795913 Problem Bipolar disorder, unspecified 296.80 Active 63635508 ALLERGIES Substance Reaction Event Type Date Status [...]
--- OUTSIDE RECORDS SUMMARY | 2016-06-24 23:02 | XMS REPORT | Continuity of Care Document ---
Author Author ANA MARIA [place] Organization [facility] Address Unknown Phone Unavailable Care Team Providers Care Packaging Manager Name Role Phone VANDANA PITTMAN Primary Care Physician [phone] Insurance Providers Guarantor Dread Bustillo Address [address] [place] [address] Email NO TO PORTAL Payer [facility] Policy Number [id number] Subscriber's Name Dread Bustillo Relationship 18 Self Effective Date 15 Expiration Date 15 Problems Past Problems Medical Problem Onset Date Depression with suicidal ideation Unknown Homicidal ideation Unknown Medications Current Home Medications Medication Dose Units Route Directions Days Qty Instructions Start Date Albuterol Sulfate (Proair Hfa 90 Mcg/Actuation) 8.5 Gm Hfa.aer.ad 2 Puff Inhalation Every 4 Hours as needed for Prn Orders 11/17/15 Atorvastatin Calcium 40 Mg Tablet 40 Mg Oral Bedtime 11/17/15 Clopidogrel Bisulfate (Clopidogrel) 75 Mg Tablet 75 Mg Oral Daily 11/17/15 Ergocalciferol (Vitamin D2) (Vitamin D2) 50,000 Unit Capsule 50,000 Unit Oral Weekly 11/17/15 Fluticasone/Salmeterol (Advair 250-50 Diskus) 1 Disk W/Dev Inhaler 2 Puff Oral Inhalation Resp.tx Twice A Day 11/17/15 Furosemide 20 Mg Tablet 20 Mg Oral Daily 11/17/15 Levothyroxine Sodium 100 Mcg Tablet 100 Mcg Oral Before Breakfast 11/17/15 Metformin Hcl 1,000 Mg Tablet 500 Mg Oral Twice Daily With Meals 11/17/15 Methocarbamol 500 Mg Tablet 500 Mg Oral Four Times Daily as needed for Prn Orders 11/17/15 Metoprolol Tartrate 25 Mg Tablet 25 Mg Oral Give With Breakfast 11/17/15 Risperidone 1 Mg Tablet 3 Mg Oral Twice A Day 11/17/15 Tiotropium [place] (Spiriva) 1 Cap Inhaler 1 Cap Oral Inhalation Daily 11/17/15 Topiramate 50 Mg Tablet 50 Mg Oral Twice A Day 11/17/15 Trazodone Hcl 100 Mg Tablet 100 Mg Oral Bedtime 11/17/15 Social History Social History Problem Response Recorded Date/Time Onset Date Status Hx Alcohol Use No 11/17/2015 1:00pm Not Applicable Not Applicable Query Response Start Date Stop Date Smoking Status Current every day smoker Hospital Discharge Instructions Current inpatient/outpatient. Discharge instructions are currently unavailable. Plan of Care Current inpatient/outpatient. The plan of care is currently unavailable Functional Status No functional status results. Allergies, Adverse Reactions, Alerts No known allergies. Immunizations No immunization records. Vital Signs Acute Vital Signs Vital Response Date/Time Temperature (Fahrenheit) 97.9 deg F (96.8 - 99.1) 11/17/2015 2:15pm Temperature (Calculated Celsius) 36.81899 degrees C (36.0 - 37.3) 11/17/2015 2:15pm Pulse Rate (adult) 95 bpm (60 - 100) 11/17/2015 12:47pm Respiratory Rate 20 breaths/min (10 - 20) 11/17/2015 12:47pm O2 Sat by Pulse Oximetry 92 % (90 - 100) 11/17/2015 12:47pm Blood Pressure 168/85 mm Hg 11/17/2015 12:47pm Height (Feet) 5 feet 11/17/2015 12:47pm Height (Inches) 8.00 inches 11/17/2015 12:47pm Weight (Kilograms) 86.900 kg 11/17/2015 12:47pm Body Mass Index (BMI) 29.0 11/17/2015 12:47pm Results Laboratory Results Test Name Result Units Flags Reference Collection Date/Time Result Date/ Time Comments White Blood Count 8.8 T/MM3 4.5-11.0 11/17/2015 1:51pm 11/17/2015 1: 56pm Red Blood Count 4.54 M/MM3 4.00-5.20 11/17/2015 1:51pm 11/17/2015 1: 56pm Hemoglobin 14.0 GM/DL 12-16 11/17/2015 1:51pm 11/17/2015 1:56pm Hematocrit 43.4 % 36-46 11/17/2015 1:51pm 11/17/2015 1:56pm Mean Corpuscular Volume 95.6 UM3 80-100 11/17/2015 1:51pm 11/17/2015 1: 56pm Mean Corpuscular Hemoglobin 30.8 UUG 26-34 11/17/2015 1:51pm 2015 1:56pm Mean Corpuscular Hemoglobin Concent 32.3 GM/DL 31-37 11/17/2015 1:51pm 11/17/2015 1:56pm RDW Standard Deviation 47.2 FL 36.9-50.2 11/17/2015 1:51pm 11/17/2015 1 :56pm Platelet Count 127 T/MM3 L 130-400 11/17/2015 1:51pm 11/17/2015 1:56pm Mean Platelet Volume 12.0 UM3 9.4-12.4 11/17/2015 1:51pm 11/17/2015 1: 56pm Neutrophils (%) (Auto) 71.7 % H 33-66 11/17/2015 1:51pm 11/17/2015 1: 56pm Lymphocytes (%) (Auto) 20.8 % L 23-45 11/17/2015 1:51pm 11/17/2015 1: 56pm Monocytes (%) (Auto) 5.6 % 0-9.0 11/17/2015 1:51pm 11/17/2015 1:56pm Eosinophils (%) (Auto) 1.1 % 0-4 11/17/2015 1:51pm 11/17/2015 1:56pm Basophils (%) (Auto) 0.3 % 0-2 11/17/2015 1:51pm 11/17/2015 1:56pm Immature Granulocyte % (Auto) 0.5 % 0.0-0.5 11/17/2015 1:51pm 2015 1:56pm Absolute Neutrophils (auto) 6.3 T/MM3 1.8-7.7 11/17/2015 1:51pm 2015 1:56pm Absolute Lymphocytes (auto) 1.8 T/MM3 1-4.8 11/17/2015 1:51pm 2015 1:56pm Absolute Monocytes (auto) 0.5 T/MM3 0-0.8 11/17/2015 1:51pm 11/17/2015 1:56pm Absolute Eosinophils (auto) 0.1 T/MM3 0-0.5 11/17/2015 1:51pm 2015 1:56pm Absolute Basophils (auto) 0.0 T/MM3 0-0.2 11/17/2015 1:51pm 11/17/2015 1:56pm Absolute Immature Granulocyte (auto 0.04 T/MM3 H 0.00-0.03 11/17/2015 1: 51pm 11/17/2015 1:56pm Icterus Index < 2 0-7 11/17/2015 1:51pm 11/17/2015 2:01pm Chemistry Specimen Hemolysis < 15 0-25 11/17/2015 1:51pm 11/17/2015 2 :01pm 0-25: Specimen Exhibited No Hemolysis. Turbidity < 20 0-20 11/17/2015 1:51pm 11/17/2015 2:01pm Sodium Level 144 MEQ/L 134-144 11/17/2015 1:51pm 11/17/2015 2:07pm Potassium Level 3.5 MEQ/L L 3.6-5 11/17/2015 1:51pm 11/17/2015 2:07pm Chloride Level 107 MEQ/L 98-107 11/17/2015 1:51pm 11/17/2015 2:07pm Carbon Dioxide Level 26 MEQ/L 22-30 11/17/2015 1:51pm 11/17/2015 2: 07pm Anion Gap 11 MEQ/L 5-15 11/17/2015 1:51pm 11/17/2015 2:07pm Blood Urea Nitrogen 24.0 MG/DL H 7-17 11/17/2015 1:51pm 11/17/2015 2: 07pm Creatinine 1.5 MG/DL H 0.7-1.2 11/17/2015 1:51pm 11/17/2015 2:07pm BUN/Creatinine Ratio 16 RATIO 6-26 11/17/2015 1:51pm 11/17/2015 2:07pm Glomerular Filtration Rate Calc 35 11/17/2015 1:51pm 11/17/2015 2: 07pm Glucose Level 105 MG/DL 65-110 11/17/2015 1:51pm 11/17/2015 2:07pm Calculated Osmolality 281 MOSM/KG H 261-280 11/17/2015 1:51pm 2015 2:07pm Calcium Level 9.2 MG/DL 8.4-10.2 11/17/2015 1:51pm 11/17/2015 2:07pm Total Bilirubin 0.40 MG/DL 0.20-1.30 11/17/2015 1:51pm 11/17/2015 2: 07pm Alkaline Phosphatase 65 U/L 38-126 11/17/2015 1:51pm 11/17/2015 2:07pm Total Protein 6.9 G/DL 6.3-8.2 11/17/2015 1:51pm 11/17/2015 2:07pm Albumin 3.8 G/DL 3.5-5.0 11/17/2015 1:51pm 11/17/2015 2:07pm Globulin 3.1 G/DL 2.4-3.6 11/17/2015 1:51pm 11/17/2015 2:07pm Albumin/Globulin Ratio 1.2 RATIO 1.1-2.2 11/17/2015 1:51pm 11/17/2015 2 :07pm Aspartate Amino Transf (AST/SGOT) 17 U/L 14-36 11/17/2015 1:51pm 2015 2:07pm Alanine Aminotransferase (ALT/SGPT) 17 U/L 9-52 11/17/2015 1:51pm 11/16 2:07pm Acetaminophen Level < 10 UG/ML L 10-30 11/17/2015 1:51pm 11/17/2015 2: 07pm TOXIC <4 HR POST INGESTION: >150 MG/L; TOXIC <12 HR POST INGESTION: >50 MG/L Salicylates Level < 1.0 MG/DL L 2-20 11/17/2015 1:51pm 11/17/2015 2: 07pm Alcohol, Quantitative <10 MG/DL <10 11/17/2015 1:51pm 11/17/2015 2: 07pm Thyroid Stimulating Hormone (TSH) 2.52 MIU/L 0.47-4.68 11/17/2015 1: 51pm 11/17/2015 2:55pm Urine Collection Type VOIDED-NOT CC-MIDSTR 11/17/2015 1:48pm 2015 2:01pm Urine Color YELLOW YELLOW 11/17/2015 1:48pm 11/17/2015 2:01pm Urine Turbidity CLEAR CLEAR 11/17/2015 1:48pm 11/17/2015 2:01pm Urine Specific Maud <=1.005 L 1.015-1.025 11/17/2015 1:48pm 2015 2:01pm Urine pH 7.0 5.0-8.0 11/17/2015 1:48pm 11/17/2015 2:01pm Urine Leukocyte Esterase NEGATIVE NEGATIVE 11/17/2015 1:48pm 2015 2:01pm Urine Nitrite NEGATIVE NEGATIVE 11/17/2015 1:48pm 11/17/2015 2:01pm Urine Protein NEGATIVE NEGATIVE 11/17/2015 1:48pm 11/17/2015 2:01pm Urine Glucose (UA) NEGATIVE NEGATIVE 11/17/2015 1:48pm 11/17/2015 2: 01pm Urine Ketones NEGATIVE NEGATIVE 11/17/2015 1:48pm 11/17/2015 2:01pm Urine Urobilinogen 0.2 EU/DL NORMAL 11/17/2015 1:48pm 11/17/2015 2: 01pm Urine Bilirubin NEGATIVE NEGATIVE 11/17/2015 1:48pm 11/17/2015 2: 01pm Urine Blood NEGATIVE NEGATIVE 11/17/2015 1:48pm 11/17/2015 2:01pm Urinalysis Comment MICROSCOPIC NOT IND. 11/17/2015 1:48pm 2015 2:01pm Name: DREAD BUSTILLO Unit #: [id number] : 1950 Sex: F Admit Date: Loc / Svc: ED Discharge Date: DIAGNOSTIC IMAGING REPORT Report #: [id number] [facility] GAURAV Parry INDICATION: ITS.REASON: cough PROCEDURE: CHEST 2-VIEWS UPRIGHT (PA \T\ LAT) Encounter: Initial COMPARISON: None FINDINGS: Blunting of the left costophrenic angle could represent a small pleural effusion or pleural thickening. Moderate emphysema. No focal consolidative pneumonia. No pneumothorax. Surgical clips in the neck. Prior CABG. Cardiac silhouette is normal in size. Mediastinal contours are normal. Pulmonary vascularity appears normal. Cholecystectomy clips. Impression: No focal pneumonia. Blunting of the left costophrenic angle which has more the appearance of pleural thickening rather than a small effusion. . Procedures No known history of procedures. Encounters Encounter Location Arrival/Admit Date Discharge/Depart Date Attending Provider Registered Emergency Room [facility] 11/17/15 12:47pm JAMES BALDERAS MD Departed Emergency Room [facility] 11/17/15 11:37am 11/17/15 12: 21pm PETRA FLOYD APRN
--- OUTSIDE RECORDS SUMMARY | 2016-06-24 23:02 | XMS REPORT ---
Author Author Delbert Quick Organization [facility] Address [address] [place] [address] Care Team Providers Care Flanging Roll Operator Name Role Phone Abdelrahman Delbert Unavailable [phone] PROBLEMS Type Condition ICD9-CM Code ZFO28-OQ Code Onset Dates Condition Status SNOMED Code Problem Hypertension, malignant (essential) 401.0 Active 23946422 Problem Unspecified hypothyroidism 244.9 Active 52775078 Assessment Unspecified hypothyroidism 244.9 Mar, Active 06840075 Problem Hypertension, benign (essential) 401.1 Active 7686134 Problem Bipolar disorder, unspecified 296.80 Active 88186723 ALLERGIES Substance Reaction Event Type Date Status [...]
--- OUTSIDE RECORDS SUMMARY | 2016-06-24 23:05 | XMS REPORT | Continuity of Care Document ---
Author Author [facility] Organization [facility] Address Unknown Phone Unavailable Allergies Active Description [...] Ruiz MD I25.10 ATHSCL HEART DISEASE OF [place] CORONARY ARTERY W/O 11/06/2015 Ania Ruiz MD I25.5 ISCHEMIC CARDIOMYOPATHY 11/06/2015 Ania Ruzi MD I35.2 NONRHEUMATIC AORTIC (VALVE) STENOSIS WITH [...] Procedures Code Description Performed By Performed On 3C359M3 MEASURE OF CARDIAC SAMPL PRESSURE, L HEART, PERC Joseph CHAMBERS, Ass Z 11/06/2015 [id number] FLUOROSCOPY OF MULT COR ART USING L OSM CONTRAST Joseph CHAMBERS, Ass Z 11/06/2015 [id number] FLUOROSCOPY OF LEFT HEART USING LOW OSMOLAR CONTRA Joseph CHAMBERS, Ass Z 11/06/2015 [id number] FLUOROSCOPY OF L INT MAMM GRAFT USING L OSM CONTRA Joseph CHAMBERS, [facility] Z 11/06/2015 [id number] FLUOROSCOPY OF THORACIC AORTA USING LOW OSMOLAR CO Joseph CHAMBERS, [facility] 11/06/2015 Results Test Result Range TROPONIN I [...] Status Pt. Type Provider Facility Loc./Unit Complaint [id number] 11/10/2015 21:36:00 2015 23:18:00 DIS Emergency Panda Bustillo DO [facility] W.RAJAT [id number] 11/06/2015 22:23:00 2015 13:38:00 DIS Inpatient Joseph CHAMBERS, Assem Z [facility] W.3TN [id number] 09/21/2015 17:18:00 2015 18:26:00 DIS Emergency Raymundo [facility]ERS[id number] 08/20/2015 10:10:00 2015 12:36:00 DIS Emergency Rayray CHAMBERS, Evette Latham [facility] [id number] 03/20/2014 10:10:00 2013 12:50:00 DIS Emergency Ector ROMAN, Connor Hobbs [facility] WRAJAT
--- NOTE | 2016-06-24 23:08 | ERPDOC ---
Departure Disposition Decision Date: Jun 25, 2016 Disposition Decision Time: 00:45 Disposition: 01 DISCHARGED HOME, SELF-CARE Impression Impression Impression: Primary Impression: Hip strain Encounter type: initial encounter Laterality: left Qualified Codes: S76.012A - Strain of muscle, fascia and tendon of left hip, initial encounter Additional Impression: Lumbar strain Encounter type: initial encounter Qualified Codes: S39.012A - Strain of muscle, fascia and tendon of lower back, initial encounter Severity: Severe Condition: Improved Seen By: Physician only Referrals: VANDANA PITTMAN (PCP) Patient Instructions: Low Back Strain (ED) Problems/Meds/Labs Reviewed?: Yes Medications reviewed and manag: Yes Additional Instructions: Continue all your routine medications, and as needed medications Follow up care ordered?: Yes Mental Status: Alert HPI - Back Pain General Chief Complaint: Low Back Pain or Injury Stated Complaint: LEG PAIN Time Seen by Provider: 22:51 Source: patient, family Exam Limitations: no limitations HPI - Back Pain Initial Comments Patient stepped down from her step this morning, felt a sudden sharp pain in the left hip radiating from the mid lumbar region into the left hip and now shooting pain down the leg. The pain has progressed throughout the day, despite taking [place] and [place] at the custodial, her pain has persisted. Patient has no specific trauma, has never had any fractured bones, but does have chronic lumbar back pain. Occurred At: home Onset/Timing: Rapid Duration: 12-24 hrs Severity/Quality: severe Location: lumbar spine Radiation: buttocks, upper legs 1 - Moderate diffuse lumbar pain 2 - Daughter diffuse left hip pain 3 - Radiation of pain Allergies: Coded Allergies: No Known Allergies (Unverified , 04/17/16) Past History Patient Surgical History Coronary artery bypass graft Cholecystectomy section Skin graft to the right foot with harvested skin from the right thigh Past Medical History Metabolic: diabetes, hypercholesterolemia, hypertension, hypothyroidism Cardiac: CAD Respiratory: other GI: gallbladder disease Neurological: headaches Musculoskeletal: back pain Psychological: OD, anxiety, bipolar, depression, suicide attempt Surgical History Denies Surgeries Vaccines Hx Influenza Vaccination: Yes (NOV 2015) Hx Pneumococcal Vaccination: Yes (10/2015) Social History Smoking Status: Current every day smoker Does patient use chewing tobac: No # of Years: 40 Second Hand Exposure: No Substance Use Type: does not use Alcohol Intake: none, Does not drink Marital Status: Housing: house Household Members: family Current Occupational Status: unemployed Record Review Pertinent history updated: Yes Review of Systems Constitutional Constitutional: DENIES: appetite decrease, appetite increase, chills, dizziness , fever, weakness ENMT Ears: DENIES: pain Hearing: DENIES: hearing loss, tinnitus Balance: DENIES: vertigo Mouth/Throat: DENIES: change in swallowing, change in voice, hoarsness, painful swallowing, sore throat Cardiovascular Cardiac: DENIES: chest pain, dyspnea on exertion Rhythm/Rate: DENIES: irregular beat, palpitations, tachycardia Vascular: DENIES: pedal edema Pulmonary Respiratory: DENIES: cough, dyspnea, pleuritic chest pain GI Upper Abdomen: DENIES: dysphagia, heartburn/indigestion, nausea, pain, vomiting Lower Abdomen: DENIES: blood in stool, constipation, diarrhea, pain General: DENIES: burning, dysuria, frequency, pain, urgency Musculoskeletal General: joint pain, pain, tenderness, DENIES: cramps, gout, joint swelling, spasm, weakness Integumentary Skin: DENIES: rash, sores Neurological General: DENIES: headache, numbness, tingling, vertigo, weakness Psychiatric Psychiatric: DENIES: anxiety, depression, nervousness Physical Exam General General Nourishment: well nourished, well developed, appears stated age, no acute distress General Body Habitus: disheveled Vitals and Pain First Documented Vital Signs Date Time Temp Pulse Resp B/P Pulse Ox O2 Delivery O2 Flow Rate FiO2 06/24/16 22:48 97.5 79 20 106/57 89 Room Air Weight: Kilograms: 97.400 Height (feet): 5 Height (inches): 9.00 Triage Pain Scale: RN VS reviewed by Provider: Yes Normal Exams: Head: Normocephalic w/o trauma Eyes: Pupils are PERRLA w/ EOMI, No scleral icterus, irritation, or foreign bodies noted ENMT: No facial trauma, nasal exudates, pharyngeal erythema, or exudates are noted Neck: Full range of motion, without adenopathy, JVD, bruits or thyromegaly Chest/Resp: Clear all berry, with good airflow, and symmetry bilaterally CV: Regular rate and rhythm, without murmur or gallop, Pulses 2+ all extremities, capillary refill, <2 seconds all ext., no pedal edema noted Abdomen: Bowel sounds positive, soft, non-tender, non-distended, no hepatosplenomegaly, masses or bruits noted Lymphatic: No lymphadenopathy, or lymphedema noted Integumentary: No rashes, hives, or bruising noted, hair and nails, without abnormality Neurologic: Patient is alert, and oriented, cranial nerves, motor/sensory/ cerebellar, exams w/o gross deficits, to observation Psychiatric: Patient exhibits, appropriate attention, emotion and affect Musculoskeletal (brief) Musculoskeletal Brief: FOUND: tenderness (diffuse left hip and left history of pelvic tenderness, no deformity. Patient has diffuse lower lumbar tenderness, without deformity or visible trauma.) Neurologic (brief) Neurological Brief: FOUND: CN w/o gross def to obs, motor-no gross deficits, sensory-no gross deficits, NOT FOUND: ataxia Psychiatric (brief) Psychiatric Brief: FOUND: alert, attentive, normal affect, oriented Progress Results/Orders Orders Procedure Category Date Status Time Hydromorphone PHA 06/24/16 Complete (Dilaudid) 23:15 Ct Lumbar Spine W/O CT 06/24/[address] Pelvis W/O Contrast CT 06/24/16 Logged Dexamethasone Inj PHA 06/25/16 In Process (Decadron) 00:45 Medications Current ED Medications Hydromorphone HCl (Dilaudid) 1 mg O ONCE IM Last administered on 06/24/16t 23: 12; Start 06/24/16 at 23:15; Stop 06/24/16 at 23:16; Status DC Progress Progress Patient is given Dilaudid [address] lumbar/pelvis/hip - normal Vision given dexamethasone 8 mg IM for acute myofascial strain lumbar/hip NIRAJ PETER MD Jun 24, 2016 23:08
[2016-06-24] MEDS ORDERED: HYDROMORPHONE 2mg/ml INJECTION IM ONE (23:15)
--- NOTE | 2016-06-25 00:16 | NUR ---
STATUS PT RESTING ON CART. RESPERATIONS EVEN AND UNLABORED.
--- NOTE | 2016-06-25 00:44 | NUR ---
PROVIDER AT BEDSIDE
[2016-06-25] MEDS ORDERED: DEXAMETHASONE 4mg/ml - 1ml INJECTION IM ONE (00:45)
[2016-06-25 01:00] VITALS: BP 139/65; PULSE 72; RESP 16; TEMP 97.5; O2SAT 91
--- NOTE | 2016-06-25 01:00 | NUR ---
DEPART PT GIVEN DI FOR LOW BACK STRAIN. VERBALIZES UNDERSTANDING OF DI. QUESTIONS ASKED/ANSWERED. DENIES FURTHER QUESTIONS/NEEDS AT THIS TIME. STATE IMPROVEMENT IN PAIN - CURRENTLY 05/04. PERSONAL BELONGINGS GATHERED. PT INDEPENDENTLY TRANSFERRED FROM CART TO WHEEL CHAIR - GAIT STABLE, NO SIGN OF DISTRESS. PT REQUESTS TO WAIT IN LOBBY, DOES NOT WANT TO REMAIN IN ROOM. PT ESCORTED TO ED EXIT - WISHES TO WAIT IN LOBBY FOR [facility] TRANSPORTATION. PT AOX3.
--- NOTE | 2016-06-25 07:51 | DI ---
Indication: ITS.REASON: acute left hip/pelvis and lumbar pain after stepping down PROCEDURE: CT PELVIS W/O CONTRAST: Encounter: Initial Comparison: None Technique: Axial noncontrast CT imaging through the pelvis with coronal and sagittal two-dimensional reformats. Automated Exposure Control and Iterative Reconstruction dose reducing techniques were utilized. Findings: No acute fracture identified. 3.3 cm abdominal aortic aneurysm, incompletely evaluated. Soft tissues of the pelvis are otherwise grossly unremarkable. No hematoma or fluid collection seen. Mild degenerative change in both hips with osteophyte formation. Impression: 1. No acute fracture. 2. 3.3 cm abdominal aortic aneurysm. There is a preliminary report by virtual [facility]. .
--- NOTE | 2016-06-25 07:54 | DI ---
Indication: ITS.REASON: acute left hip/pelvis and lumbar pain after stepping down PROCEDURE: CT LUMBAR SPINE W/O CONTRAST: Encounter: Initial Comparison: None Technique: Axial noncontrast CT imaging of the lumbar spine was performed with coronal and sagittal two-dimensional reformats. Automated Exposure Control and Iterative Reconstruction dose reducing techniques were utilized. FINDINGS: The alignment of the lumbar spine shows minimal scoliosis. No fractures or traumatic subluxation of the lumbar spine is evident. The facet joints are well aligned with preservation of the intervertebral disk and facet joints. There are age appropriate degenerative changes within the intervertebral disks and facet joints in the lower lumbar region. 3.5 cm abdominal aortic aneurysm. This is fusiform and originates below the renal arteries. IMPRESSION: 1. No evidence for acute traumatic injury of the lumbar spine. 2. 3.5 cm abdominal aortic aneurysm. At this size follow-up is recommended in two years. There is a preliminary report by [facility]. .
== END 2016-06-25 01:00 | disposition home or self-care (01) ==
LOC: ED 22:42
DX: S76.012A Strain of muscle, fascia and tendon of left hip, initial encounter (principal); S39.012A Strain of muscle, fascia and tendon of lower back, initial encounter; X58.XXXA Exposure to other specified factors, initial encounter; Y93.9 Activity, unspecified; Y92.009 Unspecified place in unspecified non-institutional (private) residence as the place of occurrence of the external cause; Y99.8 Other external cause status
CPT/HCPCS: 72131; 72192; 96372; 99284; J1100; J1170

== ENCOUNTER 2016-10-03 15:15 | Observation (INO) ==
[2016-10-03] MEDS ORDERED: NS 1,000 ML IV ONE (15:36)
--- NOTE | 2016-10-03 16:57 | XRay Report ---
Indication: Elev BNP PROCEDURE: XR chest 1V: Encounter: Initial Comparison: October 01, 2016 Findings: Increasing pulmonary vascular congestion with hazy groundglass type opacities in both mid to lower lung berry. No pneumothorax. Trace effusions. Cardiac silhouette remains enlarged. Prior CABG. Mediastinal contours are stable. Increasing pulmonary vascular congestion. Impression: Developing moderate pulmonary edema, probably due to CHF. .
--- NOTE | 2016-10-03 17:12 | Emergency Department Report ---
Dizziness HPI - General Chief Complaint: Dizziness Stated Complaint: Dizziness Time Seen by Provider: 10/03/16 15:35 Source: patient, RN notes reviewed, other (Spoke with PCM) Mode of arrival: ambulatory Limitations: no limitations - History of Present Illness HPI Narrative: 65yo woman referred to the ER for further evaluation of weakness. This is a chronic complaint for pt; has been evaluated in this ER numerous times without significant findings. Pt was seen in the ER two days ago and discharged with minor findings. Pt followed up with her PCM today and c/o again of weakness; pt was orthostatic in PCM's office. Pt has a h/o CHF and takes diuretics to control sx. Has numerous medical comorbidities which could all be causing or contributing to her sx. Pt is a poor historian and exhibits helplessness during the interview - majority of hx gleaned from pts medical record and discussion with PCM. MD complaint: other (Weakness) Onset (ago): week(s) Timing: gradual onset Description: other (Weakness, generalized) Severity: similar to previous episodes Relieving factors: nothing Exacerbating factors: movement, exertion Associated symptoms: confusion, malaise, shortness of breath, weakness - Related Data Home Medications Medication Instructions Recorded Confirmed Furosemide 20 mg PO DAILY #0 11/17/15 10/03/16 Metoprolol Tartrate 25 mg PO DAILY #0 11/17/15 10/03/16 Topiramate 50 mg PO BID #0 11/17/15 10/03/16 Trazodone HCl 100 mg PO HS #0 11/17/15 10/03/16 risperiDONE [Risperidone] 3 mg PO BID #0 11/17/15 10/03/16 Aspirin [Aspir 81] 81 mg PO DAILY #0 tab 04/16/16 10/03/16 Buspirone HCl 5 mg PO TID #0 04/16/16 10/03/16 Duloxetine [Cymbalta] 90 mg PO HS #0 cap 04/16/16 10/03/16 Metformin HCl 500 mg PO BIDWM #0 tab 04/16/16 10/03/16 Levothyroxine Tab [Synthroid] 100 mcg PO ACB 09/11/16 10/03/16 Benztropine Mesylate 1 mg PO BID PRN 09/22/16 10/03/16 Pregabalin Cap [Lyrica] 75 mg PO BID 09/22/16 10/03/16 Albuterol Sulfate [Proair Hfa] 1 puff INH Q4H PRN 10/03/16 10/03/16 Fluticasone/Salmeterol 250/50 1 puff INH BID 10/03/16 10/03/16 [Advair Diskus] Methocarbamol [Robaxin] 500 mg PO QID PRN 10/03/16 10/03/16 Tiotropium Handihaler [Spiriva] 1 cap INH DAILY 10/03/16 10/03/16 cephALEXin [Cephalexin] 500 mg PO Q12H 10/03/16 10/03/16 Previous Rx's Medication Instructions Recorded Clopidogrel Bisulfate [Plavix] 75 mg PO DAILY 30 Days 04/18/16 Guaifenesin/Dm [Mucinex Dm] 1 tab PO BID 7 Days 10/04/16 Allergies Allergy/AdvReac Type Severity Reaction Status Date / Time gabapentin AdvReac Mild Agitated Verified 10/03/16 15:27 Review of Systems All systems: reviewed and negative except as stated Constitutional: Reports: weakness Neurological: Reports: weakness, confusion PFSH Patient Stated Medical History Cerebrovascular Accident Yes: left side weakness-uses walker Hearing Loss Yes Congestive Heart Failure Yes Hypertension Yes Myocardial Infarction Yes Asthma Yes Chronic Obstructive Pulmonary Yes Disease (COPD) Pneumonia Yes: HX OF Sleep Apnea Yes Diabetes Mellitus Type 2 Yes Gastroesophageal Reflux Yes Disease Ulcer Yes Other GI Yes: CONSTIPATION Hx Incontinence Yes Clotting Problems Yes Osteoarthritis Yes Other Musculoskeletal Yes: FIBROMYALGIA Gonorrhea Yes Bipolar Disorder Yes Depression Yes Paranoid Disorder Yes Other Behavioral Health Yes: bipolar Surgical History: CABG, sarai, skin graft - Social History Smoking status: Heavy tobacco smoker Physical Exam - Limitations Limitations: altered mental status ('helpless' affect) - General General appearance: alert, in no apparent distress, obese - Normal Exams: Head:: Normocephalic without trauma Eyes:: Pupils are PERRLA w/ EOMI, No scleral icterus, irritation, or foreign bodies noted ENMT:: No facial trauma, nasal exudates, pharyngeal erythema, or exudates are noted Neck:: Full range of motion, without adenopathy, JVD, bruits or thyromegaly Lymphatic:: No lymphadenopathy, or lymphedema noted Musculoskeletal:: No tenderness, or deformity noted, good range of motion, all extremities Integumentary:: No rashes, hives, or bruising noted, hair and nails, without abnormality Neurological:: Patient is alert, and oriented, cranial nerves, motor/sensory/ cerebellar, exams w/o gross deficits, to observation - Chest Chest inspection: Present: normal inspection, symmetric chest wall rise. Absent : tenderness, rash - Respiratory Respiratory exam: Present: crackles (Fine rhonchi b/l). Absent: normal lung sounds bilaterally, respiratory distress, wheezes, stridor, prolonged expiratory phase - Cardiovascular Cardiovascular exam: Present: normal rhythm, bradycardia, normal heart sounds, + S1, +S2. Absent: regular rate, systolic murmur, diastolic murmur, +S3, +S4 - Abdominal Exam Abdominal exam: Present: soft, normal bowel sounds. Absent: distention, tenderness, guarding, rebound, psoas sign, obturator sign, Esnior's sign, Rovsing's sign, hernia - Psychiatric Psychiatric exam: Present: normal mood, depressed, flat affect. Absent: normal affect Course Course Narrative: After reviewing pts last ER eval, pt was found to be hyponatremic, without other significant findings. 1L IVF given to correct anticipated hyponatremia. Labs and films obtained showed normonatremia, but evidence of pulmonary edema and CHF exacerbation. No more IV fluids were given, and PCM was contacted for hospitalization. PCM deferred to hospitalist, who was contacted for admission. - Consultations Consultation #1: Dr. Keating: Now only admitting own pts; signed out to hospitalist. Time: 17:12 Consultation #2: Hospitalist: Will admit for CHF exacerbation. Time: 17:19 Vital Signs Pulse Rate 54 L 10/03/16 15:15 Respiratory Rate 16 10/03/16 15:15 Blood Pressure 116/57 10/03/16 15:15 Pulse Oximetry 88 L 10/03/16 15:15 Temperature 97.3 F 10/04/16 15:09 Pulse Rate 66 10/04/16 15:17 Respiratory Rate 16 10/04/16 19:19 Blood Pressure 88/56 10/04/16 15:17 Pulse Oximetry 92 10/04/16 19:19 Dizziness - Differential Diagnosis Likely: orthostatic hypotension (CHF exacerbation; PNA; UTI) - Medical Records Attestation: I reviewed the patient's medical records. - Lab Data Attestation: I reviewed the patient's lab results. Result diagrams: 10/04/16 04:46 10/04/16 04:46 Lab Results 10/03/16 10/03/16 10/03/16 Range/Units 14:58 14:58 16:10 WBC 5.9 (4.5-11.0) T/MM3 RBC 4.53 (4.00-5.20) M/MM3 Hgb 12.3 (12-16) GM/DL Hct 39.1 (36-46) % MCV 86.3 (80-100) UM3 MCH 27.2 (26-34) UUG MCHC 31.5 (31-37) GM/DL RDW Std Deviation 53.5 H (36.9-50.2) FL Plt Count 218 (130-400) T/MM3 MPV 12.2 (9.4-12.4) UM3 Turbidity < 20 (0-20) Sodium 140 D (134-144) MEQ/L Potassium 4.1 (3.6-5) MEQ/L Chloride 106 D (98-107) MEQ/L Carbon Dioxide 26 (22-30) MEQ/L Anion Gap 8 (5-15) MEQ/L BUN 12.0 (7-17) MG/DL Creatinine 1.0 D (0.7-1.2) MG/DL GFR Calculation 56 BUN/Creatinine Ratio 12 (6-26) RATIO Glucose 109 (65-110) MG/DL Calculated Osmolality 270 (261-280) MOSM/KG Calcium 9.4 (8.4-10.2) MG/DL Icterus Index < 2 (0-7) B-Natriuretic Peptide 2770 H (0-175) pg/mL Plasma Lactate (0.6-2.2) MMOL/L Procalcitonin NG/ML Specimen Hemolysis < 15 (0-25) Ur Collection Type Urine, clean catch Urine Color Yellow (YELLOW) Urine Clarity Clear Urine pH 6.5 (5.0-8.0) Ur Specific [place] <=1.005 L (1.015-1.025) Urine Protein Negative (NEGATIVE) Urine Glucose (UA) Negative (NEGATIVE) Urine Ketones Negative (NEGATIVE) Urine Occult Blood Negative (NEGATIVE) Urine Nitrate Negative (NEGATIVE) Urine Bilirubin Negative (NEGATIVE) Urine Urobilinogen 0.2 (NORMAL) EU/DL Ur Leukocyte Esterase Negative (NEGATIVE) Urinalysis Comment Microscopic not ind. 10/03/16 10/03/16 Range/Units 16:10 16:10 WBC (4.5-11.0) T/MM3 RBC (4.00-5.20) M/MM3 Hgb (12-16) GM/DL Hct (36-46) % MCV (80-100) UM3 MCH (26-34) UUG MCHC (31-37) GM/DL RDW Std Deviation (36.9-50.2) FL Plt Count (130-400) T/MM3 MPV (9.4-12.4) UM3 Turbidity (0-20) Sodium (134-144) MEQ/L Potassium (3.6-5) MEQ/L Chloride (98-107) MEQ/L Carbon Dioxide (22-30) MEQ/L Anion Gap (5-15) MEQ/L BUN (7-17) MG/DL Creatinine (0.7-1.2) MG/DL GFR Calculation BUN/Creatinine Ratio (6-26) RATIO Glucose (65-110) MG/DL Calculated Osmolality (261-280) MOSM/KG Calcium (8.4-10.2) MG/DL Icterus Index (0-7) B-Natriuretic Peptide (0-175) pg/mL Plasma Lactate 0.7 (0.6-2.2) MMOL/L Procalcitonin < 0.05 NG/ML Specimen Hemolysis (0-25) Ur Collection Type Urine Color (YELLOW) Urine Clarity Urine pH (5.0-8.0) Ur Specific [place] (1.015-1.025) Urine Protein (NEGATIVE) Urine Glucose (UA) (NEGATIVE) Urine Ketones (NEGATIVE) Urine Occult Blood (NEGATIVE) Urine Nitrate (NEGATIVE) Urine Bilirubin (NEGATIVE) Urine Urobilinogen (NORMAL) EU/DL Ur Leukocyte Esterase (NEGATIVE) Urinalysis Comment - Radiology Data Attestation: I reviewed the patient's radiology results. CXR: Developing moderate pulmonary edema, probably due to CHF. - EKG Data EKG #1 EKG attestation: Yes: I reviewed and interpreted this EKG. EKG shows normal: sinus rhythm, axis Rate: bradycardia [place]/QRS: RBBB P waves: LAE Interpretation: nonspecific ST-T wave changes Disposition Clinical Impression: Orthostatic hypotension CHF exacerbation Qualifiers: Congestive heart failure type: unspecified congestive heart failure type Qualified Code(s): I50.9 - Heart failure, unspecified Disposition: 02 To OBS [facility] [place] Condition: Stable Time of Disposition: 17:30 - Seen By: physician
--- NOTE | 2016-10-03 18:13 | History & Physical Report ---
<Abril Manzo V - Last Filed: 10/03/16 18:08> History of Present Illness Date: 10/03/16 Chief complaint: dizziness, dyspnea HPI: Patient is a 65-year-old female who presented to see her primary care provider at [facility] today for evaluation of lightheadedness and shortness of breath. There was concern for increased congestive heart failure and edema. She was then directed to the emergency room for ongoing medical evaluation and treatment. Upper studies were obtained. WBC count was found to be normal. Chemistry panel was unremarkable. ProBNP 2770, venous lactate normal at 0.7, pro calcitonin less than 0.5. A urinalysis is obtained is unremarkable. Chest x-ray was obtained that does reveal increasing pulmonary vascular congestion likely representing pulmonary edema. Her baseline oxygen of 2 liters. Given the increase in dizziness accompanied with intermittent short of breath along with existing comorbidities. The hospitalist services were contacted and accepted patient for outpatient admission for further evaluation and treatment. Review of Systems All systems: reviewed and no additional remarkable complaints except as stated - Constitutional Constitutional: Present: fatigue - Cardiovascular Cardiovascular: Present: dyspnea on exertion - Respiratory Respiratory: Present: cough PFSH COPD with chronic oxygen use Coronary artery disease with CT Type II diabetes History of CVA Hypothyroidism. History of pulmonary emboli. Depression Hypertension Bipolar disorder History of suicidal ideation ECHO- 01/09/16 IMPRESSION 1. Biatrial dilation. 2. Concentric left ventricular hypertrophy. 3. Normal LV systolic function with ejection fraction of 69%. 4. Aortic sclerosis versus very mild aortic stenosis with a valve area of 1.48 cm2 with moderate aortic insufficiency. 5. Mitral annulus calcification with mild mitral regurgitation. 6. Mild tricuspid regurgitation with estimated pulmonary artery systolic pressure of 34. 7. Trace of pulmonary insufficiency. Heart Cath- 04/17/16 Dr Ruiz IMPRESSION 1. Successful recanalization PTCA and stent of left circumflex artery using a 2.25 x 26, 2.25 x 12, and 2.25 x 8 mm drug-eluting Resolute Integrity stents with satisfactory results. 2. Moderate left internal carotid artery disease with mild right internal carotid artery disease. 3. Successful Mynx deployment for hemostasis. Surgical History: Coronary artery bypass. Cholecystectomy. . Skin grafts to the right foot with harvest from right thigh Family History: Mother with history of cancer - Social History Smoking status: Current every day smoker Substance use type: does not use Social history: Primary care provider Myla Davis at [facility] Medications Home Medications Medication Instructions Recorded Confirmed Type Furosemide 20 mg PO DAILY #0 11/17/15 10/03/16 History Metoprolol Tartrate 25 mg PO DAILY #0 11/17/15 10/03/16 History Topiramate 50 mg PO BID #0 11/17/15 10/03/16 History Trazodone HCl 100 mg PO HS #0 11/17/15 10/03/16 History risperiDONE [Risperidone] 3 mg PO BID #0 11/17/15 10/03/16 History Aspirin [Aspir 81] 81 mg PO DAILY #0 tab 04/16/16 10/03/16 History Buspirone HCl 5 mg PO TID #0 04/16/16 10/03/16 History Duloxetine [Cymbalta] 90 mg PO HS #0 cap 04/16/16 10/03/16 History Metformin HCl 500 mg PO BIDWM #0 tab 04/16/16 10/03/16 History Levothyroxine Tab [Synthroid] 100 mcg PO ACB 09/11/16 10/03/16 History Benztropine Mesylate 1 mg PO BID PRN 09/22/16 10/03/16 History Pregabalin Cap [Lyrica] 75 mg PO BID 09/22/16 10/03/16 History Albuterol Sulfate [Proair Hfa] 1 puff INH Q4H PRN 10/03/16 10/03/16 History Fluticasone/Salmeterol 250/50 1 puff INH BID 10/03/16 10/03/16 History [Advair Diskus] Methocarbamol [Robaxin] 500 mg PO QID PRN 10/03/16 10/03/16 History Tiotropium Handihaler [Spiriva] 1 cap INH DAILY 10/03/16 10/03/16 History cephALEXin [Cephalexin] 500 mg PO Q12H 10/03/16 10/03/16 History Allergies Allergy/AdvReac Type Severity Reaction Status Date / Time gabapentin AdvReac Mild Agitated Verified 10/03/16 15:27 Exam Vital Signs: Pulse Rate 54 L 10/03/16 17:30 Respiratory Rate 27 H 10/03/16 17:30 Blood Pressure 125/55 10/03/16 17:30 Pulse Oximetry 95 10/03/16 17:30 Height: 1.73 m Weight: 93.5 kg - Constitutional Present: mild distress - Routine HEENT Exam Head: Present: normocephalic, atraumatic Eye: Present: EOMI, PERRL ENT: Present: mucous membranes moist, dentition normal - Routine Neck Exam Present: full ROM - Routine Respiratory Exam Present: wheezes - Routine Cardiovascular Exam Present: RRR, S1, S2 (wheezing throughout bilaterally), bradycardia. Absent: murmur - Routine Abdominal Exam Present: soft, normoactive bowel sounds, non distended. Absent: tenderness - Routine Extremities Exam Present: full ROM, normal capillary refill - Routine Back/Spine/Pelvis Exam Back/Spine: Present: full ROM - Routine Skin Exam Present: intact, dry, warm - Routine Neurological Exam Present: alert, oriented X3, CN II-XII intact - Routine Psychiatric Exam Present: normal affect, normal thought process Results - Labs CBC & Chem 7: 10/03/16 14:58 10/03/16 14:58 Assessment and Plan (1) Dizziness Current visit: Yes Status: Acute (2) COPD (chronic obstructive pulmonary disease) Current visit: Yes Status: Chronic (3) CHF (congestive heart failure) Current visit: Yes Status: Chronic (4) Atherosclerosis of coronary artery bypass graft(s), unspecified, with other forms of angina pectoris Current visit: No Status: Chronic (5) Essential (primary) hypertension Current visit: No Status: Chronic (6) Nonrheumatic aortic valve stenosis Current visit: No Status: Chronic (7) Mixed hyperlipidemia Current visit: No Status: Chronic (8) Type 2 diabetes mellitus without complications Current visit: No Status: Chronic (9) Hypothyroidism Current visit: Yes Status: Chronic (10) Depression Current visit: Yes Status: Chronic (11) Bipolar affective disorder Current visit: Yes Status: Chronic (12) Hx pulmonary embolism Current visit: Yes Status: Resolved (13) History of CVA (cerebrovascular accident) Current visit: Yes Status: Resolved (14) Pulmonary edema Current visit: Yes Status: Acute Resuscitation Status: Full Code Assessment and Plan: Admit patient to outpatient observation under the care of Dr. Ho for dizziness, pulmonary edema Place patient on cardiac telemetry, obtain orthostatic vital signs routinely, 3 times a day. Will monitor serial troponin to rule out cardiac ischemia. Does verbalize she feels that her lower extremities are slightly more edematous. She currently is on Lasix 20 milligrams once a day at home. She was given Bumex 1 mg IVx1 on admission. Will monitor I/O carefully Monitor Accu-Cheks and continue with home dosing of metformin 500 mg twice a day. Patient can utilize Pulmicort twice a day and DuoNeb as needed. Continue with home oxygen at 2 liters by nasal cannula. SCDs to bilateral lower extremity for DVT prophylaxis Will recheck CBC, BMP, magnesium, and troponin tomorrow morning for laboratory completeness She does request to be a full code and this order is written. Will discuss further orders and plan of care with attending, Dr. Ho. At time of discharge medical care will return to primary care provider, Myla Davis at [facility] Sepsis Assessment - Evaluation Sepsis screening result: No Definite Risk Hospital Course Summary Disclaimer: The visit summary below is not to be considered part of the above Progress Note. Hospital Course: 10/03/16 18:34 Admit patient to outpatient observation under the care of Dr. Ho for dizziness, pulmonary edema Place patient on cardiac telemetry, obtain orthostatic vital signs routinely, 3 times a day. Will monitor serial troponin to rule out cardiac ischemia. Does verbalize she feels that her lower extremities are slightly more edematous. She currently is on Lasix 20 milligrams once a day at home. She was given Bumex 1 mg IVx1 on admission. Will monitor I/O carefully Monitor Accu-Cheks and continue with home dosing of metformin 500 mg twice a day. Patient can utilize Pulmicort twice a day and DuoNeb as needed. Continue with home oxygen at 2 liters by nasal cannula. SCDs to bilateral lower extremity for DVT prophylaxis Will recheck CBC, BMP, magnesium, and troponin tomorrow morning for laboratory completeness She does request to be a full code and this order is written. Will discuss further orders and plan of care with attending, Dr. Ho. At time of discharge medical care will return to primary care provider, Myla Davis at [facility] <Ryan Ho - Last Filed: 10/03/16 19:07> History of Present Illness Date: 10/03/16 [facility] Patient Stated Medical History Cerebrovascular Accident Yes: left side weakness-uses walker Seizures Yes: hx of Hearing Loss Yes Congestive Heart Failure Yes Hypertension Yes Myocardial Infarction Yes Asthma Yes Chronic Obstructive Pulmonary Yes Disease (COPD) Pneumonia Yes: hx Sleep Apnea Yes Diabetes Mellitus Type 2 Yes Gastroesophageal Reflux Yes Disease Ulcer Yes Other GI Yes: CONSTIPATION Hx Incontinence Yes Hx Urinary Tract Infection Yes: hx Clotting Problems Yes Osteoarthritis Yes Other Musculoskeletal Yes: FIBROMYALGIA Gonorrhea Yes Bipolar Disorder Yes Depression Yes Paranoid Disorder Yes Exam Vital Signs: Temperature 98.4 F 10/03/16 18:23 Pulse Rate 54 L 10/03/16 18:23 Respiratory Rate 24 10/03/16 18:23 Blood Pressure 120/61 10/03/16 18:23 Pulse Oximetry 94 10/03/16 18:23 Oxygen Delivery Method Nasal Cannula Oxygen Flow Rate 2 Height: 1.73 m Weight: 94.4 kg Results - Labs CBC & Chem 7: 10/03/16 14:58 10/03/16 14:58 Assessment and Plan (1) Atherosclerosis of coronary artery bypass graft(s), unspecified, with other forms of angina pectoris Current visit: No Status: Chronic (2) Essential (primary) hypertension Current visit: No Status: Chronic (3) Mixed hyperlipidemia Current visit: No Status: Chronic (4) Nonrheumatic aortic valve stenosis Current visit: No Status: Chronic (5) Type 2 diabetes mellitus without complications Current visit: No Status: Chronic (6) Bipolar affective disorder Current visit: Yes Status: Chronic (7) History of CVA (cerebrovascular accident) Current visit: Yes Status: Resolved (8) COPD (chronic obstructive pulmonary disease) Current visit: Yes Status: Chronic (9) CHF (congestive heart failure) Current visit: Yes Status: Chronic (10) Hypothyroidism Current visit: Yes Status: Chronic (11) Depression Current visit: Yes Status: Chronic (12) Hx pulmonary embolism Current visit: Yes Status: Resolved (13) Dizziness Current visit: Yes Status: Acute (14) Pulmonary edema Current visit: Yes Status: Acute Assessment and Plan: Have independently interviewed and examined pt. Chart reviewed. Case discussed with ED Physician and my [employer]. Care plan developed with my supervision; agree with above. Feeling more weak, dizzy, and unstable. Notes SOA and dry, no productive cough. No pain with breathing. Not feeling chest pressure or palpitations. Seen in clinic today and referred to ED for further evaluation. CXR showing some pulmonary edema. Patient maintaining saturations on baseline O2. Lung: decreased, end expiratory wheezes. Shallow breathing. CV: regular AB: soft nt/nd MSE: awake alert appropriate GEN: appears tired and weak. Plan: OBS. Bumex 1mg given x1 to help motivate fluid. Repeat Bumex tomorrow. Tele and serial enzymes to rule out acute cardiac event. Echo to assess cardiac function. Continue supplemental O2. Monitor sugars. Hospital Course Summary Disclaimer: The visit summary below is not to be considered part of the above Progress Note.
[2016-10-03] MEDS ORDERED: BENZTROPINE 1 MG TABLET PO PRN (18:16)
[2016-10-03] MEDS ORDERED: METHOCARBAMOL 500 MG TABLET PO PRN (18:16)
[2016-10-03 18:41] VITALS: BMI 31.6
[2016-10-03] MEDS ORDERED: MENTHOL COUGH DROPS (RICOLA) MM PRN (19:01)
[2016-10-03] MEDS: ALBUTEROL/IPRATROPIUM 2.5mg-0.5mg/3ml NEB AEROSOL PRN (19:24)
[2016-10-03] MEDS: BUDESONIDE INH.SOLN 0.5mg/2ml NEB AEROSOL SCH (19:25)
[2016-10-03] MEDS ORDERED: TRAZODONE 100 MG TABLET PO SCH (22:00)
[2016-10-03] MEDS ORDERED: DULOXETINE 30 MG CAPSULE PO SCH (22:00)
[2016-10-03] MEDS: PREGABALIN 75 MG CAPSULE PO SCH (22:20)
[2016-10-03] MEDS: RisperiDONE 1 MG TABLET PO SCH (22:21)
[2016-10-03] MEDS: TOPIRAMATE 25 MG TABLET PO SCH (22:22)
[2016-10-03] MEDS: BUSPIRONE 5 MG TABLET PO SCH (22:22)
[2016-10-03] MEDS: GUAIFENESIN/D-METHORPHAN 600mg/30mg TABLET PO SCH (22:23)
[2016-10-04] MEDS ORDERED: LEVOTHYROXINE 100 MCG TABLET PO SCH (06:30)
[2016-10-04] MEDS: BUDESONIDE INH.SOLN 0.5mg/2ml NEB AEROSOL SCH ×2 (07:59→19:19)
[2016-10-04] MEDS: ALBUTEROL/IPRATROPIUM 2.5mg-0.5mg/3ml NEB AEROSOL PRN ×2 (08:00→19:19)
[2016-10-04] MEDS ORDERED: SALINE FLUSH 10ml SYRINGE IV PRN (08:42)
[2016-10-04] MEDS: RisperiDONE 1 MG TABLET PO SCH (08:43)
[2016-10-04] MEDS: PREGABALIN 75 MG CAPSULE PO SCH (08:44)
[2016-10-04] MEDS: BUSPIRONE 5 MG TABLET PO SCH ×2 (08:44→15:31)
[2016-10-04] MEDS: METFORMIN 500 MG TABLET PO SCH ×2 (08:52→18:35)
[2016-10-04] MEDS: TOPIRAMATE 25 MG TABLET PO SCH (08:53)
[2016-10-04] MEDS ORDERED: CLOPIDOGREL 75 MG TABLET PO SCH (09:00)
[2016-10-04] MEDS ORDERED: ASPIRIN *EC* 81 MG TABLET PO SCH (09:00)
[2016-10-04] MEDS ORDERED: PNEUMOCOCCAL 23 VACCINE 0.5ml INJECTION IM ONE (12:51)
[2016-10-04] MEDS ORDERED: PNEUMOCOCCAL VAC ADMIN CHARGE INJ ONE (13:20)
[2016-10-04] MEDS: GUAIFENESIN/D-METHORPHAN 600mg/30mg TABLET PO SCH (13:20)
--- NOTE | 2016-10-04 13:30 | Progress Note ---
Subjective: F/U: Dizziness, pulm edema Doing better today. Feels breathing improved, still has coughing spell. No pain with breathing or chest pain. Dizziness not bad-chronically has some problems. Did well with PT - at baseline. Eating well. Wanting to go home. Wanting to go smoke. Objective Vital signs: Temperature 97.6 F 10/04/16 07:37 Pulse Rate 61 10/04/16 11:35 Respiratory Rate 18 10/04/16 08:00 Blood Pressure 89/59 10/04/16 07:39 Pulse Oximetry 93 10/04/16 08:00 Oxygen Delivery Method Nasal Cannula Oxygen Flow Rate 2.5 Weight: 92.2 kg - Constitutional Present: well nourished, well developed, obese, cooperative - Routine HEENT Exam Head: Present: normocephalic, atraumatic Eye: Present: EOMI, PERRL. Absent: conjunctival icterus ENT: Present: mucous membranes moist - Routine Respiratory Exam Present: prolonged expiratory phase, wheezes (Faint ), crackles (Faint), distant breath sounds, diminished air movement (Moving air better today than yesterday). Absent: respiratory distress - Routine Cardiovascular Exam Present: RRR, murmur - Routine Abdominal Exam Present: soft, normoactive bowel sounds, non distended, non tender. Absent: rebound, guarding - Routine Extremities Exam Present: no edema, pulses intact. Absent: cyanosis - Routine Musculoskeletal Exam Musculoskeletal: Present: no clubbing or cyanosis - Routine Skin Exam Present: intact, warm, normal turgor. Absent: mottling - Routine Neurological Exam Present: alert, CN II-XII intact, vision grossly intact, hearing grossly intact. Absent: motor deficit - Routine Psychiatric Exam Present: normal affect, normal thought process, cooperative Results - Labs CBC & Chem 7: 10/04/16 04:46 10/04/16 04:46 Assessment and Plan (1) Dizziness Current visit: Yes Status: Acute (2) Pulmonary edema Current visit: Yes Status: Acute (3) Atherosclerosis of coronary artery bypass graft(s), unspecified, with other forms of angina pectoris Current visit: No Status: Chronic (4) CHF (congestive heart failure) Current visit: Yes Status: Chronic (5) Essential (primary) hypertension Current visit: No Status: Chronic (6) Mixed hyperlipidemia Current visit: No Status: Chronic (7) Nonrheumatic aortic valve stenosis Current visit: No Status: Chronic (8) Type 2 diabetes mellitus without complications Current visit: No Status: Chronic (9) COPD (chronic obstructive pulmonary disease) Current visit: Yes Status: Chronic (10) Hypothyroidism Current visit: Yes Status: Chronic (11) Depression Current visit: Yes Status: Chronic (12) Bipolar affective disorder Current visit: Yes Status: Chronic (13) History of CVA (cerebrovascular accident) Current visit: Yes Status: Resolved (14) Hx pulmonary embolism Current visit: Yes Status: Resolved DVT Prophylaxis: SCD's Resuscitation Status: Full Code Assessment and Plan: Troponin without elevation. CBC stable. Creatinine stable at 1.0. Bumex 1mg given IV this am, repeat dose scheduled this afternoon at 1400. Will check CXR post Bumex. Respiratory status to base line. Anticipate discharge today. Encouraged tobacco cessations-RT counseling orders. Stress the importance of Sodium restriction - advised 2000mg daily or less. Showed pt how to read nutritional labels on products. Will have pt F/U with [facility] [address] Ruiz in ~1 week. ECHO pending at this time. Sepsis Assessment - Evaluation Sepsis screening result: No Definite Risk Hospital Course Summary Disclaimer: The visit summary below is not to be considered part of the above Progress Note. Hospital Course: 10/03/16 Admit patient to outpatient observation under the care of Dr. Ho for dizziness, pulmonary edema Place patient on cardiac telemetry, obtain orthostatic vital signs routinely, 3 times a day. Will monitor serial troponin to rule out cardiac ischemia. Does verbalize she feels that her lower extremities are slightly more edematous. She currently is on Lasix 20 milligrams once a day at home. She was given Bumex 1 mg IVx1 on admission. Will monitor I/O carefully Monitor Accu-Cheks and continue with home dosing of metformin 500 mg twice a day. Patient can utilize Pulmicort twice a day and DuoNeb as needed. Continue with home oxygen at 2 liters by nasal cannula. SCDs to bilateral lower extremity for DVT prophylaxis Will recheck CBC, BMP, magnesium, and troponin tomorrow morning for laboratory completeness She does request to be a full code and this order is written. Will discuss further orders and plan of care with attending, Dr. Ho. At time of discharge medical care will return to primary care provider[facility] 10/04/16 Doing better today. Feels breathing improved, still has coughing spell. No pain with breathing or chest pain. Dizziness not bad-chronically has some problems. Did well with PT - at baseline. Eating well. Wanting to go home. Wanting to go smoke. Troponin without elevation. CBC stable. Creatinine stable at 1.0. Bumex 1mg given IV this am, repeat dose scheduled this afternoon at 1400. Will check CXR post Bumex. Respiratory status to base line. Anticipate discharge today. Encouraged tobacco cessations-RT counseling orders. Stress the importance of Sodium restriction - advised 2000mg daily or less. Showed pt how to read nutritional labels on products. Will have pt F/U with [facility] [address] Ruiz in ~1 week. ECHO pending at this time.
[2016-10-04 15:11] VITALS: TEMP 97.3
[2016-10-04 15:18] VITALS: BP 88/56; PULSE 66
--- NOTE | 2016-10-04 16:13 | XRay Report ---
INDICATION: F/U PROCEDURE: CHEST 2-VIEWS UPRIGHT (PA & LAT) Encounter: Initial COMPARISON: October 03, 2016 FINDINGS: Improved pulmonary vascular congestion with a mild amount remaining. Mild hazy opacity in both lower lobes, right greater than left. Linear atelectasis or scarring in the left base as well. No pneumothorax. Trace pleural effusions. Heart size and mediastinal contours are stable. Prior sternotomy changes. Overlying monitoring leads. Impression: Improving congestive failure. .
--- NOTE | 2016-10-04 16:20 | Discharge Summary ---
Discharge Information Date of admission: 10/03/16 17:40 Anticipated date of discharge: 10/04/16 Attending Physician: Ryan Ho MD Primary care physician: Lali Padilla APRN Consults: PT/OT RT for tobacco cessation - Discharge Diagnosis (1) Dizziness Status: Acute (2) Pulmonary edema Status: Resolved (3) Atherosclerosis of coronary artery bypass graft(s), unspecified, with other forms of angina pectoris Status: Chronic (4) CHF (congestive heart failure) Qualifiers: Congestive heart failure type: unspecified congestive heart failure type Congestive heart failure chronicity: acute on chronic Qualified Code(s): I50.9 - Heart failure, unspecified Status: Chronic (5) Essential (primary) hypertension Status: Chronic (6) Mixed hyperlipidemia Status: Chronic (7) Nonrheumatic aortic valve stenosis Status: Chronic (8) Type 2 diabetes mellitus without complications Qualifiers: Diabetes mellitus terminologist insulin use: without terminologist use Qualified Code(s): E11.9 - Type 2 diabetes mellitus without complications Status: Chronic (9) COPD (chronic obstructive pulmonary disease) Qualifiers: COPD type: emphysema Emphysema type: unspecified Qualified Code(s): J43.9 - Emphysema, unspecified Status: Chronic (10) Hypothyroidism Qualifiers: Hypothyroidism type: acquired Qualified Code(s): E03.9 - Hypothyroidism, unspecified Status: Chronic (11) Depression Qualifiers: Depression Type: unspecified Qualified Code(s): F32.9 - Major depressive disorder, single episode, unspecified Status: Chronic (12) Bipolar affective disorder Qualifiers: Active/Remission status: in full remission Most recent bipolar episode type : most recent episode unspecified type Qualified Code(s): F31.70 - Bipolar disorder, currently in remission, most recent episode unspecified Status: Chronic (13) History of CVA (cerebrovascular accident) Status: Resolved (14) Hx pulmonary embolism Status: Resolved - Laboratory Labs: 10/04/16 04:46 10/04/16 04:46 - Radiology Radiology: Date of Exam: 10/03/16 Type of Exam(s): XR chest 1V Reason for Exam(s): Elev BNP PROCEDURE: XR chest 1V: Comparison: October 01, 2016 Findings: Increasing pulmonary vascular congestion with hazy groundglass type opacities in both mid to lower lung berry. No pneumothorax. Trace effusions. Cardiac silhouette remains enlarged. Prior CABG. Mediastinal contours are stable. Increasing pulmonary vascular congestion. Impression: Developing moderate pulmonary edema, probably due to CHF. Date of Exam: 10/04/16 Type of Exam(s): XR chest 2V Reason for Exam(s): F/U PROCEDURE: CHEST 2-VIEWS UPRIGHT (PA & LAT) COMPARISON: October 03, 2016 FINDINGS: Improved pulmonary vascular congestion with a mild amount remaining. Mild hazy opacity in both lower lobes, right greater than left. Linear atelectasis or scarring in the left base as well. No pneumothorax. Trace pleural effusions. Heart size and mediastinal contours are stable. Prior sternotomy changes. Overlying monitoring leads. Impression: Improving congestive failure. History of Present Illness HPI: Patient is a 65-year-old female who presented to see her primary care provider at [facility] today for evaluation of lightheadedness and shortness of breath. There was concern for increased congestive heart failure and edema. She was then directed to the emergency room for ongoing medical evaluation and treatment. Upper studies were obtained. WBC count was found to be normal. Chemistry panel was unremarkable. ProBNP 2770, venous lactate normal at 0.7, pro calcitonin less than 0.5. A urinalysis is obtained is unremarkable. Chest x-ray was obtained that does reveal increasing pulmonary vascular congestion likely representing pulmonary edema. Her baseline oxygen of 2 liters. Given the increase in dizziness accompanied with intermittent short of breath along with existing comorbidities. The hospitalist services were contacted and accepted patient for outpatient admission for further evaluation and treatment. For complete details of the H&P refer to that document. Objective Vital signs: Temperature 97.3 F 10/04/16 15:09 Pulse Rate 66 10/04/16 15:17 Respiratory Rate 17 10/04/16 15:09 Blood Pressure 88/56 10/04/16 15:17 Pulse Oximetry 91 10/04/16 15:09 Oxygen Delivery Method Nasal Cannula Oxygen Flow Rate 2 Weight: 92.2 kg Hospital Course This is a general summary of the patient's hospital course. For more details refer to the complete medical record. Hospital course: 10/03/16 Admit patient to outpatient observation under the care of Dr. Ho for dizziness, pulmonary edema Place patient on cardiac telemetry, obtain orthostatic vital signs routinely, 3 times a day. Will monitor serial troponin to rule out cardiac ischemia. Does verbalize she feels that her lower extremities are slightly more edematous. She currently is on Lasix 20 milligrams once a day at home. She was given Bumex 1 mg IVx1 on admission. Will monitor I/O carefully Monitor Accu-Cheks and continue with home dosing of metformin 500 mg twice a day. Patient can utilize Pulmicort twice a day and DuoNeb as needed. Continue with home oxygen at 2 liters by nasal cannula. SCDs to bilateral lower extremity for DVT prophylaxis Will recheck CBC, BMP, magnesium, and troponin tomorrow morning for laboratory completeness She does request to be a full code and this order is written. Will discuss further orders and plan of care with attending, Dr. Ho. At time of discharge medical care will return to primary care provider, Myla Quarles/Lali PATEL at [facility] 10/04/16 Doing better today. Feels breathing improved, still has coughing spell. No pain with breathing or chest pain. Dizziness not bad-chronically has some problems. Did well with PT - at baseline. Eating well. Wanting to go home. Wanting to go smoke. Troponin without elevation. CBC stable. Creatinine stable at 1.0. Bumex 1mg given - will check CXR post Bumex. Respiratory status to base line. Anticipate discharge today. Encouraged tobacco cessations-RT counseling orders. Stress the importance of Sodium restriction - advised 2000mg daily or less. Showed pt how to read nutritional labels on products. Will have pt F/U with [facility] in [address] Ruiz in ~1 week. ECHO pending at this time. Discharge Plan - Med Rec/Dispo Referrals/Follow Up: Lali Padilla APRN [Family Provider] - 1 Week Gregg Ruiz MD [Physician] - 2 Weeks Prescriptions: New Guaifenesin/Dm [Mucinex Dm] 1 tab PO BID 7 Days Continue Trazodone HCl 100 mg PO HS #0 risperiDONE [Risperidone] 3 mg PO BID #0 Furosemide 20 mg PO DAILY #0 Metoprolol Tartrate 25 mg PO DAILY #0 Metformin HCl 500 mg PO BIDWM #0 tab Aspirin [Aspir 81] 81 mg PO DAILY #0 tab Buspirone HCl 5 mg PO TID #0 Clopidogrel Bisulfate [Plavix] 75 mg PO DAILY 30 Days Benztropine Mesylate 1 mg PO BID PRN PRN Reason: Extrapyramidal symptoms Albuterol Sulfate [Proair Hfa] 1 puff INH Q4H PRN PRN Reason: Prn Orders Tiotropium Handihaler [Spiriva] 1 cap INH DAILY Methocarbamol [Robaxin] 500 mg PO QID PRN PRN Reason: Prn Orders cephALEXin [Cephalexin] 500 mg PO Q12H Fluticasone/Salmeterol 250/50 [Advair Diskus] 1 puff INH BID Topiramate 50 mg PO BID #0 Duloxetine [Cymbalta] 90 mg PO HS #0 cap Levothyroxine Tab [Synthroid] 100 mcg PO ACB Pregabalin Cap [Lyrica] 75 mg PO BID Discharge Instructions/Outpatient Orders: Final Provider Discharge Instructions Location: Determined By Patient - Disposition 01 Discharged Home, Self-Care - Attestation Attestation Narrative: 10/04/16 16:27 I have interviewed and examined pt. See my progress note from today. Patient medically stable for discharge to home.
[2016-10-04 19:33] VITALS: RESP 16; O2SAT 92
--- NOTE | 2016-10-04 21:18 | Echocardiogram ---
DATE OF PROCEDURE 10/04/2016 REFERRING PHYSICIAN Ryan Ho MD INDICATION This is a two-dimensional echo with spectral Doppler, color-flow, and M-mode. It was obtained in a patient with shortness of breath. DESCRIPTION OF PROCEDURE Left atrium is dilated. Left ventricular end-diastolic dimension is normal. Left ventricular wall thickness is increased. LV systolic function is reduced with global hypokinesia with ejection fraction of about 45%. Right atrium is dilated. Right ventricle is normal. Aortic root dimension is normal. Mitral annulus is calcified. Mitral valve leaflets are sclerotic with mild mitral regurgitation with no stenosis. Aortic valve shows fibrocalcific changes with no stenosis. [id number] aortic insufficiency is present. Tricuspid valve shows moderate tricuspid regurgitation with moderate pulmonary hypertension with estimated pulmonary artery systolic pressure of 50. Pulmonary valve shows no pulmonary insufficiency. There is no pericardial effusion. IMPRESSION 1. Global hypokinesia with ejection fraction of about 45%. 2. Aortic sclerosis with [id number] aortic insufficiency. 3. Mitral annulus calcification with mitral sclerosis and mild mitral regurgitation. 4. Biatrial dilation. 5. Left ventricular hypertrophy. 6. Moderate tricuspid regurgitation with moderate pulmonary hypertension with estimated pulmonary artery systolic pressure of 50. MTDD
== END 2016-10-04 19:55 | disposition home or self-care (01) ==
LOC: ED 15:15 → MED 15:15
PROVIDERS: ADMIT Hospitalist; ATTEND Hospitalist

== ENCOUNTER 2016-11-05 15:20 | Inpatient (IN) ==
[2016-11-05] MEDS ORDERED: SALINE FLUSH 10ml SYRINGE IVF PRN (15:52)
[2016-11-05] MEDS ORDERED: NITROGLYCERIN 0.4 MG SUBLINGUAL TABLET SL PRN (15:52)
[2016-11-05] MEDS ORDERED: ASPIRIN 81 MG CHEWABLE TABLET PO ONE (15:52)
--- NOTE | 2016-11-05 16:04 | Emergency Department Report ---
Chest Pain HPI - General Chief Complaint: Chest Pain <Gabe Cerrato Q - 11/12/16 17:23> Stated Complaint: Chest Pain <Gabe Cerrato Q - 11/12/16 17:23> Time Seen by Provider: 11/05/16 15:56 <Gabe Cerrato - 11/12/16 17:23> Source: patient, EMS <Rosaura Vaughn 11/05/16 16:07> Mode of arrival: EMS <Rosaura Vaughn 11/05/16 16:07> Limitations: no limitations <Rosaura Vaughn 11/05/16 16:07> - History of Present Illness HPI narrative: Patient consented to the emergency department by EMS transport with complaints of chest pain that started while at rest. Patient does have a significant history of coronary artery disease with bypass surgery,pulmonary artery disease , HLD , hypertension, AV stenosis and insufficiency, bilateral carotid artery stenosis, type II diabetic and a history of abdominal aortic aneurysm. Patient is to be on home oxygen at 2 L per nasal cannula however has not had her oxygen available for the past week. When paramedics arrived, patient was orthostatic with systolic pressure dropping down into the 70s and therefore nitroglycerin was not given. Patient did receive fentanyl by EMS which did relieve her pain however made the patient very sleepy. At time of exam, patient is sleepy, she is slurring her words somewhat which is reported happened immediately after the fentanyl was given. Patient states that she has been having heart burn the past several days. She reports an increase in lower extremity edema also. Patient has had increased SOA however has also been without her oxygen. She states that her oxygen has been in [place] for reasons that are not clear at this time. Lungs have wheezes and crackles bilaterally. At the time of my exam, patient is groggy from the fentanyl but oriented x3 and is chest pain free. She reports pain , when present , has been epigastric. <Rosaura aVughn 11/05/16 16:07> MD complaint: chest pain <Rosaura Vaughn 11/05/16 16:07> Occurred At: home <Rosaura Vaughn 11/05/16 16:07> Onset (ago): hour(s) <Rosaura Vaughn 11/05/16 16:07> Duration: constant, now resolved <Rosaura Vaughn 11/05/16 16:07> Onset: during rest <Rosaura Vaughn 11/05/16 16:07> Pain location: substernal, epigastric <Rosaura Vaughn 11/05/16 16:07> Severity: severe <Rosaura Vaughn 11/05/16 16:07> Aspirin Today: provided by EMS <Rosaura Vaughn 11/05/16 16:07> Nitro Today: no nitro taken today <Rosaura Vaughn 11/05/16 16:07> Treatments prior to arrival chest pain: aspirin, oxygen <Rosaura Vaughn 16:07> - Related Data On Oral Contraceptives: No <Rosaura Vaughn 11/05/16 16:07> Home Medications Medication Instructions Recorded Confirmed Furosemide 20 mg PO DAILY #0 11/17/15 11/05/16 Metoprolol Tartrate 25 mg PO DAILY #0 11/17/15 11/05/16 Topiramate 50 mg PO BID #0 11/17/15 11/05/16 Trazodone HCl 100 mg PO HS #0 11/17/15 11/05/16 risperiDONE [Risperidone] 3 mg PO BID #0 11/17/15 11/05/16 Aspirin [Aspir 81] 81 mg PO DAILY #0 tab 04/16/16 11/05/16 Buspirone HCl 5 mg PO TID #0 04/16/16 11/05/16 Duloxetine [Cymbalta] 90 mg PO HS #0 cap 04/16/16 11/05/16 Metformin HCl 500 mg PO BIDWM #0 tab 04/16/16 11/05/16 Levothyroxine Tab [Synthroid] 100 mcg PO ACB 09/11/16 11/05/16 Benztropine Mesylate 1 mg PO BID PRN 09/22/16 11/05/16 Pregabalin Cap [Lyrica] 75 mg PO BID 09/22/16 11/05/16 Albuterol Sulfate [Proair Hfa] 1 puff INH Q4H PRN 10/03/16 11/05/16 Fluticasone/Salmeterol 250/50 1 puff INH BID 10/03/16 11/05/16 [Advair 250-50 Diskus] Methocarbamol [Robaxin] 500 mg PO QID PRN 10/03/16 11/05/16 Tiotropium Handihaler [Spiriva] 1 cap INH DAILY 10/03/16 11/05/16 Previous Rx's Medication Instructions Recorded Clopidogrel Bisulfate [Plavix] 75 mg PO DAILY 30 Days #30 tab 04/18/16 <Gabe Cerrato Q - 11/12/16 17:23> Allergies Allergy/AdvReac Type Severity Reaction Status Date / Time gabapentin AdvReac Mild Agitated Verified 11/05/16 15:59 <Gabe Cerrato Q - 11/12/16 17:23> Review of Systems All systems: reviewed and negative except as stated <Rosaura Vaughn - 16:07> Constitutional: Reports: as per HPI. Denies: fever, chills <Rosaura Vaughn - 11/05/16 16:07> Eyes: Denies: eye pain, eye discharge <Rosaura Vaughn - 11/05/16 16:07> ENT: Denies: ear pain, throat pain, dental pain <Rosaura Vaughn - 11/05/16 16:07> Cardiovascular: Reports: as per HPI, chest pain, dyspnea on exertion, edema. Denies: palpitations <Rosaura Vaughn - 11/05/16 16:07> Respiratory: Reports: as per HPI, dyspnea, wheezes <Rosaura Vaughn - 16:07> Gastrointestinal: Reports: as per HPI, abdominal pain <Rosaura Vaughn 16:07> Musculoskeletal: Denies: back pain <Rosaura Vaughn 11/05/16 16:07> ON LICENSE OF [facility] Patient Stated Medical History Cerebrovascular Accident Yes: Left side weakness-uses walker Seizures Yes: Hx of Hearing Loss Yes Angina Yes Cardiac Arrhythmia No Congestive Heart Failure Yes Hypertension Yes Myocardial Infarction Yes Peripheral Vascular Disease Uknown Valvular Heart Disease Yes Asthma Yes Chronic Obstructive Pulmonary Yes Disease (COPD) Pneumonia Yes: Hx Sleep Apnea Yes Other Respiratory Yes: o2 2liters at home Diabetes Mellitus Type 1 No Diabetes Mellitus Type 2 Yes Gastroesophageal Reflux Yes Disease Ulcer Yes Other GI Yes: Constipation Hx Incontinence Yes Hx Urinary Tract Infection Yes: Hx Clotting Problems Yes: Hx of blood clots in the lungs Osteoarthritis Yes Other Musculoskeletal Yes: Fibromylagia Gonorrhea Yes Bipolar Disorder Yes Depression Yes Paranoid Disorder Yes Recreational Drug Use Yes: Years ago Other Behavioral Health Yes: bipolar Post Menopausal Yes <MetcalfeGabe pino Q - 11/12/16 17:23> Surgical History: CABG, sarai, skin graft <Rosaura Vaughn 11/05/16 16:07> - Social History Smoking status: Heavy tobacco smoker <Rosaura Vaughn 11/05/16 16:07> Physical Exam - Limitations Limitations: no limitations <Rosaura Vaughn 11/05/16 16:07> - General General appearance: in no apparent distress, other (alert but groggy, patient had received fentanyl ) <Rosaura Vaughn 11/05/16 16:07> - Normal Exams: Eyes:: Pupils are PERRLA w/ EOMI, No scleral icterus <Rosaura Vaughn 11/05 16:07> Neck:: Full range of motion, without adenopathy, JVD, bruits or thyromegaly < Rosaura Vaughn 11/05/16 16:07> Abdomen:: Bowel sounds positive, soft, non-tender, non-distended, no hepatosplenomegaly, masses or bruits noted <Rosaura Vaughn 11/05/16 16:07> Lymphatic:: No lymphadenopathy <Rosaura Vaughn 11/05/16 16:07> Musculoskeletal:: No tenderness, or deformity noted, good range of motion < Rosaura Vaughn 11/05/16 16:07> Integumentary:: No rashes, hives, or bruising noted <Rosaura Vaughn 16:07> Course - Reevaluation(s) Reevaluation #1 Time Reevaluation: 16:57 <Rosaura Vaughn 11/05/16 17:00> Comments: Patient is resting now, remains CP free. Sys bp 118 and oxygen at 2L/NC keeps patient at 97% . CXR indicates edema vs infiltrate. WBC normal and clinical exam does appear to be more CHF exacerbation. Awaiting rest of lab. <Rosaura Vaughn Mohsen - 11/05/16 17:00> - Consultations Consultation #1: Corina NIEVES with Dr Joseph leblanc; accepts admission for CHF exacerbation at 1740 <Yony Vaughncatherine Connolly - 11/05/16 17:50> Time: 17:45 <Rosaura Vaughn Mohsen - 11/05/16 17:50> Vital Signs Temperature 98 F 11/05/16 15:27 Pulse Rate 59 L 11/05/16 15:27 Respiratory Rate 12 11/05/16 15:27 Blood Pressure 118/57 11/05/16 15:27 Pulse Oximetry 94 11/05/16 15:27 Temperature 97.4 F 11/07/16 07:12 Pulse Rate 58 L 11/07/16 15:00 Respiratory Rate 19 11/07/16 15:00 Blood Pressure 123/60 11/07/16 13:23 Pulse Oximetry 94 11/07/16 14:45 <Gabe Cerrato Q - 11/12/16 17:23> Chest Pain - MDM Narrative Medical decision making narrative: CHF exacerbation; BNP 1332; CXR indicates CHF vs infiltrate however WBC normal and patient showing no indication for infection. Lungs with crackles and wheezes. Home oxygen at 2L/NC however has been without supplemental oxygen this week. Chest pain free since arrival after having been given fentanyl by EMS ; patient states has been having "heart burn" at home this week but has been compliant with meds. Troponin .019; Patient was admitted in September 2016 and troponin levels at that time 0.025, .021 and .023. <Connie Vaughnmohsen Connolly - 11/05/16 17:50> - Lab Data Result diagrams: 11/07/16 04:54 11/07/16 04:54 <Gabe eCrrato Q - 11/12/16 17:23> Lab Results 11/05/16 11/05/16 11/05/16 Range/Units 16:20 16:20 16:20 WBC 6.5 (4.5-11.0) T/MM3 RBC 4.50 (4.00-5.20) M/MM3 Hgb 12.4 (12-16) GM/DL Hct 39.1 (36-46) % MCV 86.9 (80-100) UM3 MCH 27.6 (26-34) UUG MCHC 31.7 (31-37) GM/DL RDW Std Deviation 56.7 H (36.9-50.2) FL Plt Count 153 (130-400) T/MM3 MPV 12.0 (9.4-12.4) UM3 Immature Gran % (Auto) 0.0 (0.0-0.5) % Neut % (Auto) 64.5 (33-66) % Lymph % (Auto) 24.0 (23-45) % Ashe % (Auto) 7.9 (0-9.0) % Eos % (Auto) 3.1 (0-4) % Baso % (Auto) 0.5 (0-2) % Neut # 4.2 (1.8-7.7) T/MM3 Lymph # 1.6 (1-4.8) T/MM3 Ashe # 0.5 (0-0.8) T/MM3 Eos # 0.2 (0-0.5) T/MM3 Baso # 0.0 (0-0.2) T/MM3 Abs Immat Gran (auto) 0.00 (0.00-0.03) T/MM3 ABG pH (7.350-7.450) ABG pCO2 (34-45) MMHG ABG pO2 (80-100) MMHG ABG HCO3 (22-26) MEQ/L ABG Total CO2 (23-27) MEQ/L ABG O2 Saturation (95.0-98.0) % ABG Base Excess (-2.0-2.0) MMOL/L O2 Delivery Method FiO2 (liters per min) Turbidity < 20 (0-20) Sodium 141 (134-144) MEQ/L Potassium 3.9 (3.6-5) MEQ/L Chloride 105 (98-107) MEQ/L Carbon Dioxide 27 (22-30) MEQ/L Anion Gap 9 (5-15) MEQ/L BUN 19.0 H (7-17) MG/DL Creatinine 1.1 (0.7-1.2) MG/DL GFR Calculation 50 BUN/Creatinine Ratio 17 (6-26) RATIO Glucose 77 (65-110) MG/DL Glucometer (65-110) mg/dL Calculated Osmolality 272 (261-280) MOSM/KG Calcium 8.9 (8.4-10.2) MG/DL Total Bilirubin 0.50 (0.20-1.30) MG/DL Icterus Index < 2 (0-7) AST 14 (14-36) U/L ALT 27 (9-52) U/L Alkaline Phosphatase 78 (38-126) U/L Troponin I 0.019 (0-0.12) ng/ml B-Natriuretic Peptide 1320 H (0-175) pg/mL Total Protein 6.7 (6.3-8.2) G/DL Albumin 3.8 (3.5-5.0) G/DL Globulin 2.9 (2.4-3.6) G/DL Albumin/Globulin Ratio 1.3 (1.1-2.2) RATIO Lipase 55 (23-300) U/L TSH (0.47-4.68) MIU/L Specimen Hemolysis < 15 (0-25) 11/05/16 11/05/16 11/06/16 Range/Units 22:52 22:52 04:05 WBC 4.9 (4.5-11.0) T/MM3 RBC 4.76 (4.00-5.20) M/MM3 Hgb 12.8 (12-16) GM/DL Hct 41.3 (36-46) % MCV 86.8 (80-100) UM3 MCH 26.9 (26-34) UUG MCHC 31.0 (31-37) GM/DL RDW Std Deviation 57.4 H (36.9-50.2) FL Plt Count 157 (130-400) T/MM3 MPV 12.9 H (9.4-12.4) UM3 Immature Gran % (Auto) 0.0 (0.0-0.5) % Neut % (Auto) 50.0 (33-66) % Lymph % (Auto) 35.2 (23-45) % Ashe % (Auto) 9.5 H (0-9.0) % Eos % (Auto) 4.7 H (0-4) % Baso % (Auto) 0.6 (0-2) % Neut # 2.5 (1.8-7.7) T/MM3 Lymph # 1.7 (1-4.8) T/MM3 Ashe # 0.5 (0-0.8) T/MM3 Eos # 0.2 (0-0.5) T/MM3 Baso # 0.0 (0-0.2) T/MM3 Abs Immat Gran (auto) 0.00 (0.00-0.03) T/MM3 ABG pH 7.360 (7.350-7.450) ABG pCO2 52 H (34-45) MMHG ABG pO2 60 L (80-100) MMHG ABG HCO3 29 H (22-26) MEQ/L ABG Total CO2 31.0 H (23-27) MEQ/L ABG O2 Saturation 90.0 L (95.0-98.0) % ABG Base Excess 3.0 H (-2.0-2.0) MMOL/L O2 Delivery Method Nasal cannula, liter FiO2 (liters per min) 1 Turbidity (0-20) Sodium (134-144) MEQ/L Potassium (3.6-5) MEQ/L Chloride (98-107) MEQ/L Carbon Dioxide (22-30) MEQ/L Anion Gap (5-15) MEQ/L BUN (7-17) MG/DL Creatinine (0.7-1.2) MG/DL GFR Calculation BUN/Creatinine Ratio (6-26) RATIO Glucose (65-110) MG/DL Glucometer (65-110) mg/dL Calculated Osmolality (261-280) MOSM/KG Calcium (8.4-10.2) MG/DL Total Bilirubin (0.20-1.30) MG/DL Icterus Index (0-7) AST (14-36) U/L ALT (9-52) U/L Alkaline Phosphatase (38-126) U/L Troponin I 0.024 (0-0.12) ng/ml B-Natriuretic Peptide (0-175) pg/mL Total Protein (6.3-8.2) G/DL Albumin (3.5-5.0) G/DL Globulin (2.4-3.6) G/DL Albumin/Globulin Ratio (1.1-2.2) RATIO Lipase (23-300) U/L TSH (0.47-4.68) MIU/L Specimen Hemolysis < 15 (0-25) 11/06/16 11/06/16 11/06/16 Range/Units 04:05 05:55 10:45 WBC (4.5-11.0) T/MM3 RBC (4.00-5.20) M/MM3 Hgb (12-16) GM/DL Hct (36-46) % MCV (80-100) UM3 MCH (26-34) UUG MCHC (31-37) GM/DL RDW Std Deviation (36.9-50.2) FL Plt Count (130-400) T/MM3 MPV (9.4-12.4) UM3 Immature Gran % (Auto) (0.0-0.5) % Neut % (Auto) (33-66) % Lymph % (Auto) (23-45) % Ashe % (Auto) (0-9.0) % Eos % (Auto) (0-4) % Baso % (Auto) (0-2) % Neut # (1.8-7.7) T/MM3 Lymph # (1-4.8) T/MM3 Ashe # (0-0.8) T/MM3 Eos # (0-0.5) T/MM3 Baso # (0-0.2) T/MM3 Abs Immat Gran (auto) (0.00-0.03) T/MM3 ABG pH (7.350-7.450) ABG pCO2 (34-45) MMHG ABG pO2 (80-100) MMHG ABG HCO3 (22-26) MEQ/L ABG Total CO2 (23-27) MEQ/L ABG O2 Saturation (95.0-98.0) % ABG Base Excess (-2.0-2.0) MMOL/L O2 Delivery Method FiO2 (liters per min) Turbidity < 20 (0-20) Sodium 143 (134-144) MEQ/L Potassium 3.9 (3.6-5) MEQ/L Chloride 107 (98-107) MEQ/L Carbon Dioxide 28 (22-30) MEQ/L Anion Gap 8 (5-15) MEQ/L BUN 17.0 (7-17) MG/DL Creatinine 1.1 (0.7-1.2) MG/DL GFR Calculation 50 BUN/Creatinine Ratio 16 (6-26) RATIO Glucose 84 (65-110) MG/DL Glucometer 88 (65-110) mg/dL Calculated Osmolality 276 (261-280) MOSM/KG Calcium 10.1 D (8.4-10.2) MG/DL Total Bilirubin (0.20-1.30) MG/DL Icterus Index < 2 (0-7) AST (14-36) U/L ALT (9-52) U/L Alkaline Phosphatase (38-126) U/L Troponin I 0.024 0.018 (0-0.12) ng/ml B-Natriuretic Peptide (0-175) pg/mL Total Protein (6.3-8.2) G/DL Albumin (3.5-5.0) G/DL Globulin (2.4-3.6) G/DL Albumin/Globulin Ratio (1.1-2.2) RATIO Lipase (23-300) U/L TSH 2.61 (0.47-4.68) MIU/L Specimen Hemolysis < 15 < 15 (0-25) 11/06/16 11/06/16 Range/Units 11:01 13:49 WBC (4.5-11.0) T/MM3 RBC (4.00-5.20) M/MM3 Hgb (12-16) GM/DL Hct (36-46) % MCV (80-100) UM3 MCH (26-34) UUG MCHC (31-37) GM/DL RDW Std Deviation (36.9-50.2) FL Plt Count (130-400) T/MM3 MPV (9.4-12.4) UM3 Immature Gran % (Auto) (0.0-0.5) % Neut % (Auto) (33-66) % Lymph % (Auto) (23-45) % Ashe % (Auto) (0-9.0) % Eos % (Auto) (0-4) % Baso % (Auto) (0-2) % Neut # (1.8-7.7) T/MM3 Lymph # (1-4.8) T/MM3 Ashe # (0-0.8) T/MM3 Eos # (0-0.5) T/MM3 Baso # (0-0.2) T/MM3 Abs Immat Gran (auto) (0.00-0.03) T/MM3 ABG pH (7.350-7.450) ABG pCO2 (34-45) MMHG ABG pO2 (80-100) MMHG ABG HCO3 (22-26) MEQ/L ABG Total CO2 (23-27) MEQ/L ABG O2 Saturation (95.0-98.0) % ABG Base Excess (-2.0-2.0) MMOL/L O2 Delivery Method FiO2 (liters per min) Turbidity (0-20) Sodium (134-144) MEQ/L Potassium (3.6-5) MEQ/L Chloride (98-107) MEQ/L Carbon Dioxide (22-30) MEQ/L Anion Gap (5-15) MEQ/L BUN (7-17) MG/DL Creatinine (0.7-1.2) MG/DL GFR Calculation BUN/Creatinine Ratio (6-26) RATIO Glucose (65-110) MG/DL Glucometer 156 168 (65-110) mg/dL Calculated Osmolality (261-280) MOSM/KG Calcium (8.4-10.2) MG/DL Total Bilirubin (0.20-1.30) MG/DL Icterus Index (0-7) AST (14-36) U/L ALT (9-52) U/L Alkaline Phosphatase (38-126) U/L Troponin I (0-0.12) ng/ml B-Natriuretic Peptide (0-175) pg/mL Total Protein (6.3-8.2) G/DL Albumin (3.5-5.0) G/DL Globulin (2.4-3.6) G/DL Albumin/Globulin Ratio (1.1-2.2) RATIO Lipase (23-300) U/L TSH (0.47-4.68) MIU/L Specimen Hemolysis (0-25) <Gabe Cerrato Q - 11/12/16 17:23> Lab Results 11/05/16 11/05/16 11/05/16 Range/Units 16:20 16:20 16:20 WBC 6.5 (4.5-11.0) T/MM3 RBC 4.50 (4.00-5.20) M/MM3 Hgb 12.4 (12-16) GM/DL Hct 39.1 (36-46) % MCV 86.9 (80-100) UM3 MCH 27.6 (26-34) UUG MCHC 31.7 (31-37) GM/DL RDW Std Deviation 56.7 H (36.9-50.2) FL Plt Count 153 (130-400) T/MM3 MPV 12.0 (9.4-12.4) UM3 Immature Gran % (Auto) 0.0 (0.0-0.5) % Neut % (Auto) 64.5 (33-66) % Lymph % (Auto) 24.0 (23-45) % Ashe % (Auto) 7.9 (0-9.0) % Eos % (Auto) 3.1 (0-4) % Baso % (Auto) 0.5 (0-2) % Neut # 4.2 (1.8-7.7) T/MM3 Lymph # 1.6 (1-4.8) T/MM3 Ashe # 0.5 (0-0.8) T/MM3 Eos # 0.2 (0-0.5) T/MM3 Baso # 0.0 (0-0.2) T/MM3 Abs Immat Gran (auto) 0.00 (0.00-0.03) T/MM3 ABG pH (7.350-7.450) ABG pCO2 (34-45) MMHG ABG pO2 (80-100) MMHG ABG HCO3 (22-26) MEQ/L ABG Total CO2 (23-27) MEQ/L ABG O2 Saturation (95.0-98.0) % ABG Base Excess (-2.0-2.0) MMOL/L O2 Delivery Method FiO2 (liters per min) Turbidity < 20 (0-20) Sodium 141 (134-144) MEQ/L Potassium 3.9 (3.6-5) MEQ/L Chloride 105 (98-107) MEQ/L Carbon Dioxide 27 (22-30) MEQ/L Anion Gap 9 (5-15) MEQ/L BUN 19.0 H (7-17) MG/DL Creatinine 1.1 (0.7-1.2) MG/DL GFR Calculation 50 BUN/Creatinine Ratio 17 (6-26) RATIO Glucose 77 (65-110) MG/DL Glucometer (65-110) mg/dL Calculated Osmolality 272 (261-280) MOSM/KG Calcium 8.9 (8.4-10.2) MG/DL Total Bilirubin 0.50 (0.20-1.30) MG/DL Icterus Index < 2 (0-7) AST 14 (14-36) U/L ALT 27 (9-52) U/L Alkaline Phosphatase 78 (38-126) U/L Troponin I 0.019 (0-0.12) ng/ml B-Natriuretic Peptide 1320 H (0-175) pg/mL Total Protein 6.7 (6.3-8.2) G/DL Albumin 3.8 (3.5-5.0) G/DL Globulin 2.9 (2.4-3.6) G/DL Albumin/Globulin Ratio 1.3 (1.1-2.2) RATIO Lipase 55 (23-300) U/L TSH (0.47-4.68) MIU/L Specimen Hemolysis < 15 (0-25) 11/05/16 11/05/16 11/06/16 Range/Units 22:52 22:52 04:05 WBC 4.9 (4.5-11.0) T/MM3 RBC 4.76 (4.00-5.20) M/MM3 Hgb 12.8 (12-16) GM/DL Hct 41.3 (36-46) % MCV 86.8 (80-100) UM3 MCH 26.9 (26-34) UUG MCHC 31.0 (31-37) GM/DL RDW Std Deviation 57.4 H (36.9-50.2) FL Plt Count 157 (130-400) T/MM3 MPV 12.9 H (9.4-12.4) UM3 Immature Gran % (Auto) 0.0 (0.0-0.5) % Neut % (Auto) 50.0 (33-66) % Lymph % (Auto) 35.2 (23-45) % Ashe % (Auto) 9.5 H (0-9.0) % Eos % (Auto) 4.7 H (0-4) % Baso % (Auto) 0.6 (0-2) % Neut # 2.5 (1.8-7.7) T/MM3 Lymph # 1.7 (1-4.8) T/MM3 Ashe # 0.5 (0-0.8) T/MM3 Eos # 0.2 (0-0.5) T/MM3 Baso # 0.0 (0-0.2) T/MM3 Abs Immat Gran (auto) 0.00 (0.00-0.03) T/MM3 ABG pH 7.360 (7.350-7.450) ABG pCO2 52 H (34-45) MMHG ABG pO2 60 L (80-100) MMHG ABG HCO3 29 H (22-26) MEQ/L ABG Total CO2 31.0 H (23-27) MEQ/L ABG O2 Saturation 90.0 L (95.0-98.0) % ABG Base Excess 3.0 H (-2.0-2.0) MMOL/L O2 Delivery Method Nasal cannula, liter FiO2 (liters per min) 1 Turbidity (0-20) Sodium (134-144) MEQ/L Potassium (3.6-5) MEQ/L Chloride (98-107) MEQ/L Carbon Dioxide (22-30) MEQ/L Anion Gap (5-15) MEQ/L BUN (7-17) MG/DL Creatinine (0.7-1.2) MG/DL GFR Calculation BUN/Creatinine Ratio (6-26) RATIO Glucose (65-110) MG/DL Glucometer (65-110) mg/dL Calculated Osmolality (261-280) MOSM/KG Calcium (8.4-10.2) MG/DL Total Bilirubin (0.20-1.30) MG/DL Icterus Index (0-7) AST (14-36) U/L ALT (9-52) U/L Alkaline Phosphatase (38-126) U/L Troponin I 0.024 (0-0.12) ng/ml B-Natriuretic Peptide (0-175) pg/mL Total Protein (6.3-8.2) G/DL Albumin (3.5-5.0) G/DL Globulin (2.4-3.6) G/DL Albumin/Globulin Ratio (1.1-2.2) RATIO Lipase (23-300) U/L TSH (0.47-4.68) MIU/L Specimen Hemolysis < 15 (0-25) 11/06/16 11/06/16 11/06/16 Range/Units 04:05 05:55 10:45 WBC (4.5-11.0) T/MM3 RBC (4.00-5.20) M/MM3 Hgb (12-16) GM/DL Hct (36-46) % MCV (80-100) UM3 MCH (26-34) UUG MCHC (31-37) GM/DL RDW Std Deviation (36.9-50.2) FL Plt Count (130-400) T/MM3 MPV (9.4-12.4) UM3 Immature Gran % (Auto) (0.0-0.5) % Neut % (Auto) (33-66) % Lymph % (Auto) (23-45) % Ashe % (Auto) (0-9.0) % Eos % (Auto) (0-4) % Baso % (Auto) (0-2) % Neut # (1.8-7.7) T/MM3 Lymph # (1-4.8) T/MM3 Ashe # (0-0.8) T/MM3 Eos # (0-0.5) T/MM3 Baso # (0-0.2) T/MM3 Abs Immat Gran (auto) (0.00-0.03) T/MM3 ABG pH (7.350-7.450) ABG pCO2 (34-45) MMHG ABG pO2 (80-100) MMHG ABG HCO3 (22-26) MEQ/L ABG Total CO2 (23-27) MEQ/L ABG O2 Saturation (95.0-98.0) % ABG Base Excess (-2.0-2.0) MMOL/L O2 Delivery Method FiO2 (liters per min) Turbidity < 20 (0-20) Sodium 143 (134-144) MEQ/L Potassium 3.9 (3.6-5) MEQ/L Chloride 107 (98-107) MEQ/L Carbon Dioxide 28 (22-30) MEQ/L Anion Gap 8 (5-15) MEQ/L BUN 17.0 (7-17) MG/DL Creatinine 1.1 (0.7-1.2) MG/DL GFR Calculation 50 BUN/Creatinine Ratio 16 (6-26) RATIO Glucose 84 (65-110) MG/DL Glucometer 88 (65-110) mg/dL Calculated Osmolality 276 (261-280) MOSM/KG Calcium 10.1 D (8.4-10.2) MG/DL Total Bilirubin (0.20-1.30) MG/DL Icterus Index < 2 (0-7) AST (14-36) U/L ALT (9-52) U/L Alkaline Phosphatase (38-126) U/L Troponin I 0.024 0.018 (0-0.12) ng/ml B-Natriuretic Peptide (0-175) pg/mL Total Protein (6.3-8.2) G/DL Albumin (3.5-5.0) G/DL Globulin (2.4-3.6) G/DL Albumin/Globulin Ratio (1.1-2.2) RATIO Lipase (23-300) U/L TSH 2.61 (0.47-4.68) MIU/L Specimen Hemolysis < 15 < 15 (0-25) 11/06/16 11/06/16 Range/Units 11:01 13:49 WBC (4.5-11.0) T/MM3 RBC (4.00-5.20) M/MM3 Hgb (12-16) GM/DL Hct (36-46) % MCV (80-100) UM3 MCH (26-34) UUG MCHC (31-37) GM/DL RDW Std Deviation (36.9-50.2) FL Plt Count (130-400) T/MM3 MPV (9.4-12.4) UM3 Immature Gran % (Auto) (0.0-0.5) % Neut % (Auto) (33-66) % Lymph % (Auto) (23-45) % [place] % (Auto) (0-9.0) % Eos % (Auto) (0-4) % Baso % (Auto) (0-2) % Neut # (1.8-7.7) T/MM3 Lymph # (1-4.8) T/MM3 [place]he # (0-0.8) T/MM3 Eos # (0-0.5) T/MM3 Baso # (0-0.2) T/MM3 Abs Immat Gran (auto) (0.00-0.03) T/MM3 ABG pH (7.350-7.450) ABG pCO2 (34-45) MMHG ABG pO2 (80-100) MMHG ABG HCO3 (22-26) MEQ/L ABG Total CO2 (23-27) MEQ/L ABG O2 Saturation (95.0-98.0) % ABG Base Excess (-2.0-2.0) MMOL/L O2 Delivery Method FiO2 (liters per min) Turbidity (0-20) Sodium (134-144) MEQ/L Potassium (3.6-5) MEQ/L Chloride (98-107) MEQ/L Carbon Dioxide (22-30) MEQ/L Anion Gap (5-15) MEQ/L BUN (7-17) MG/DL Creatinine (0.7-1.2) MG/DL GFR Calculation BUN/Creatinine Ratio (6-26) RATIO Glucose (65-110) MG/DL Glucometer 156 168 (65-110) mg/dL Calculated Osmolality (261-280) MOSM/KG Calcium (8.4-10.2) MG/DL Total Bilirubin (0.20-1.30) MG/DL Icterus Index (0-7) AST (14-36) U/L ALT (9-52) U/L Alkaline Phosphatase (38-126) U/L Troponin I (0-0.12) ng/ml B-Natriuretic Peptide (0-175) pg/mL Total Protein (6.3-8.2) G/DL Albumin (3.5-5.0) G/DL Globulin (2.4-3.6) G/DL Albumin/Globulin Ratio (1.1-2.2) RATIO Lipase (23-300) U/L TSH (0.47-4.68) MIU/L Specimen Hemolysis (0-25) <Rosaura Vaughn E - 11/05/16 17:00> - EKG Data EKG #1 EKG attestation: Yes: I reviewed and interpreted this EKG. <Gabe Cerrato Q - 11/12/16 17:23> EKG shows normal: sinus rhythm <Gabe Cerrato Q - 11/12/16 17:23> Rate: bradycardia <Gabe Cerrato Q - 11/12/16 17:23> Rhythm: NSR <Gabe Cerrato Q - 11/12/16 17:23> [place]/QRS: RBBB <Gabe Cerrato Q - 11/12/16 17:23> Interpretation: no acute changes <Gabe Cerrato Q - 11/12/16 17:23> Disposition Clinical Impression: Congestive heart failure (CHF) <Vita Cerraton Q - 11/12/16 17:23> Disposition: 02 To [facility] <Vita Cerraton Q - 11/12/16 17:23> Condition: Stable <Vita Cerraton Q - 11/12/16 17:23> Instructions: <Vita Cerraton Q - 11/12/16 17:23> Prescriptions: Continue Trazodone HCl 100 mg PO HS #0 risperiDONE [Risperidone] 3 mg PO BID #0 Furosemide 20 mg PO DAILY #0 Metoprolol Tartrate 25 mg PO DAILY #0 Metformin HCl 500 mg PO BIDWM #0 tab Aspirin [Aspir 81] 81 mg PO DAILY #0 tab Buspirone HCl 5 mg PO TID #0 Clopidogrel Bisulfate [Plavix] 75 mg PO DAILY 30 Days #30 tab Benztropine Mesylate 1 mg PO BID PRN PRN Reason: Extrapyramidal symptoms Albuterol Sulfate [Proair Hfa] 1 puff INH Q4H PRN PRN Reason: Prn Orders Tiotropium Handihaler [Spiriva] 1 cap INH DAILY Methocarbamol [Robaxin] 500 mg PO QID PRN PRN Reason: Prn Orders Fluticasone/Salmeterol 250/50 [Advair 250-50 Diskus] 1 puff INH BID Topiramate 50 mg PO BID #0 Duloxetine [Cymbalta] 90 mg PO HS #0 cap Levothyroxine Tab [Synthroid] 100 mcg PO ACB Pregabalin Cap [Lyrica] 75 mg PO BID Discontinued Clopidogrel [Plavix] 1 tab PO DAILY <Vita Cerraton Q - 11/12/16 17:23> Referrals: Lali Padilla, LIZBETH [Family Provider] - <Vita Cerraton Q - 11/12 17:23> Forms: <Vita Cerraton Q - 11/12/16 17:23> Time of Disposition: 17:50 <Rosaura Vaughn - 11/05/16 17:50> - Seen By: midlevel <Rosaura Vaughn - 11/05/16 17:18>
--- NOTE | 2016-11-05 16:15 | XRay Report ---
Indication: shortness of air PROCEDURE: XR chest 1V: Encounter: Initial Comparison: October 04, 2016 Findings: Motion artifact. Hazy airspace opacity in the right mid to lower lung field. No pneumothorax or obvious pleural effusion. Left lung is stable and grossly clear. Left basilar scarring. Cardiac silhouette remains mildly enlarged. Poststernotomy changes. Overlying monitoring leads. Impression: Hazy right basilar airspace disease could represent pneumonia or edema. .
[2016-11-05 18:33] VITALS: BMI 30.2
[2016-11-05] MEDS ORDERED: ONDANSETRON 4 MG/2 ML INJECTION IVP PRN (22:29)
[2016-11-05] MEDS ORDERED: METHOCARBAMOL 500 MG TABLET PO PRN (22:40)
[2016-11-05] MEDS ORDERED: ALBUTEROL 2.5mg/3ml (0.083%) NEB AEROSOL PRN ×2 (22:40→23:20)
[2016-11-05] MEDS ORDERED: BENZTROPINE 1 MG TABLET PO PRN (22:40)
--- NOTE | 2016-11-05 22:56 | Cardiology History & Physical ---
History of Present Illness Chief complaint: Chest pain HPI: This is a 65 year old patient known to Dr. Ruiz with a history of CAD, Hx CABG with recent stent to the Circumflex artery, PVD with recent stent to the Right SFA, Cardiomyopathy, EF 43%, SHF, HTN, DM T2, DSLD, carotid artery disease , and small AAA. She has COPD and wears O2 at 2LNC at home and continues to smoke. When EMS arrived. Cardiac procedures: 02/06/2016 heart cath: EF 30-35%, LVEDP 24, LAD prox 70% stenosis, distal LAD showed competitive flow from PETTY, Cx occluded proximally w late filling of the Cx, PETTY to LAD patent, small AAA. 04/17/2016 PTCA/stent to the Cx with drug eluding stents x3. 02/06/2016 LE angiogram: R ext iliac 40%, L SFA 75-80%, L popliteal 70%, L anterior and posterior tibial occluded, R SFA 70%, R anterior and posterior tibial occluded. 09/11/2016. Successful PREFORM PLATE MAKER and stent of the right SFA using a 5.0 x 150 drug- eluted Admiral Impact balloon and an 8.0 x 150 bare-metal self-expanding EV3 Protg stent. 10/04/2016 echo: EF 43%, BAD, LVH, mild AR/MR/NM, mild to moderate AI, AV calcified. Moderate TR, moderate PHTN, PAP 50. She had been up and around when about 9am she developed chest/epigastric pain. She is pointing to her epigastric area. Later in the day the pain was in her left shoulder as well. Denies SOB, diaphoresis, palpitations. when the pain worsened she thought she may be having a heart attack and called 911. She did not take a Ntg. Pt states she took all her morning meds including Plavix. When EMS arrived she was orthostatic with SBP dropping to the 70's therefore no Ntg was given but fentanyl was given before 1600 which relieved her pain but also made her lethargic per ER report. She is still lethargic at 10pm. She can not awaken without much effort and can answer one question then returns back to sleep. Per ER report, she has been without her oxygen for the past several days. She reported to ER that she had SOB and edema. Her O2 sat was 85% on room and placed on O2 at 2LNC and O2 sat in the 90's. BNP 1332; CXR indicates CHF vs infiltrate however WBC normal and patient showing no indication for infection. Lungs with crackles and wheezes. Home oxygen at 2L/NC however has been without supplemental oxygen this week. Chest pain free since arrival after having been given fentanyl by EMS ; patient states has been having "heart burn" at home this week but has been compliant with meds. Troponin .019; Patient was admitted in September 2016 and troponin levels at that time 0.025, .021 and .023. Currently pt is very sleepy. she is laying almost flat without SOB. Lungs with wheezes. no edema. Denies chest pain or any pain. Her left chest area is painful with light palpation. She has been incontinent of urine. Pt first seen by Dr. Ruiz on 11/06/2016. Review of Systems Review of systems: ROS difficult to obtain due to pt's lethargy. Most information from ER report. - EENMT Eyes: Absent: blurry vision Mouth/Throat: Absent: sore throat - Cardiovascular Cardiovascular: Present: chest pain, dyspnea on exertion, edema, other (pain in left chest area on palpation. ). Absent: palpitations Vascular: Present: intermittent claudication, pedal edema - Respiratory Respiratory: Present: cough, dyspnea on exertion - Gastrointestinal Gastrointestinal: Present: abdominal pain. Absent: diarrhea - Musculoskeletal Musculoskeletal: Present: back pain - Integumentary/Breasts Integumentary: Absent: rash - Neurological Neurological: Present: other (sleepy) - Psychiatric Psychiatric: Present: anxiety - Hematologic/Lymphatic Hematologic/Lymphatic: Absent: easy bleeding PFSH Patient Stated Medical History Cerebrovascular Accident Yes: Left side weakness-uses walker Seizures Yes: Hx of Hearing Loss Yes Angina Yes Cardiac Arrhythmia No Congestive Heart Failure Yes Hypertension Yes Myocardial Infarction Yes Valvular Heart Disease Yes Asthma Yes Chronic Obstructive Pulmonary Yes Disease (COPD) Pneumonia Yes: Hx Sleep Apnea Yes Other Respiratory Yes: o2 2liters at home Diabetes Mellitus Type 1 No Diabetes Mellitus Type 2 Yes Gastroesophageal Reflux Yes Disease Ulcer Yes Other GI Yes: Constipation Hx Incontinence Yes Hx Urinary Tract Infection Yes: Hx Clotting Problems Yes: Hx of blood clots in the lungs Osteoarthritis Yes Other Musculoskeletal Yes: Fibromylagia Gonorrhea Yes Bipolar Disorder Yes Depression Yes Paranoid Disorder Yes Other Behavioral Health Yes: bipolar Post Menopausal Yes CAD Hx CABG and coronary stent on 04/17/2016 PVD Hx lower extremity stent on 09/11/2016 Surgical History: CABG, sarai, skin graft Family History: Mother with history of cancer - Social History Smoking status: Current every day smoker Time spent discussing smoking cessation with patient: 3 to 10 minutes Substance use type: does not use Alcohol intake frequency: does not drink Housing: apartment Household members: none Current occupational status: unemployed Current residence: Apartment/Private Home Medications Home Medications Medication Instructions Recorded Confirmed Type Furosemide 20 mg PO DAILY #0 11/17/15 11/05/16 History Metoprolol Tartrate 25 mg PO DAILY #0 11/17/15 11/05/16 History Topiramate 50 mg PO BID #0 11/17/15 11/05/16 History Trazodone HCl 100 mg PO HS #0 11/17/15 11/05/16 History risperiDONE [Risperidone] 3 mg PO BID #0 11/17/15 11/05/16 History Aspirin [Aspir 81] 81 mg PO DAILY #0 tab 04/16/16 11/05/16 History Buspirone HCl 5 mg PO TID #0 04/16/16 11/05/16 History Duloxetine [Cymbalta] 90 mg PO HS #0 cap 04/16/16 11/05/16 History Metformin HCl 500 mg PO BIDWM #0 tab 04/16/16 11/05/16 History Levothyroxine Tab [Synthroid] 100 mcg PO ACB 09/11/16 11/05/16 History Benztropine Mesylate 1 mg PO BID PRN 09/22/16 11/05/16 History Pregabalin Cap [Lyrica] 75 mg PO BID 09/22/16 11/05/16 History Albuterol Sulfate [Proair Hfa] 1 puff INH Q4H PRN 10/03/16 11/05/16 History Fluticasone/Salmeterol 250/50 1 puff INH BID 10/03/16 11/05/16 History [Advair 250-50 Diskus] Methocarbamol [Robaxin] 500 mg PO QID PRN 10/03/16 11/05/16 History Tiotropium Handihaler [Spiriva] 1 cap INH DAILY 10/03/16 11/05/16 History Clopidogrel [Plavix] 1 tab PO DAILY 11/06/16 11/06/16 History Allergies Allergy/AdvReac Type Severity Reaction Status Date / Time gabapentin AdvReac Mild Agitated Verified 11/05/16 15:59 Exam Vital signs: Temperature 96.5 F L 11/05/16 18:19 Pulse Rate 58 L 11/05/16 18:19 Respiratory Rate 18 11/05/16 18:19 Blood Pressure 126/62 11/05/16 18:19 Pulse Oximetry 85 L 11/05/16 18:19 Oxygen Delivery Method Room Air - Constitutional no acute distress, well nourished, other (lethargic. ) - Routine HEENT Exam Head: Present: normocephalic, atraumatic Eye: Present: conjunctivae pink ENT: Present: mucous membranes moist Nose: moist mucous membranes - Routine Neck Exam Present: carotid bruit. Absent: JVD - Routine Chest/Breast/Axilla Exam Chest wall: Present: tenderness (on palpiation) - Routine Respiratory Exam Present: wheezes (expiratory wheezes throughout. ) - Routine Cardiovascular Exam Present: RRR, murmur (2/6). Absent: JVD - Routine Abdominal Exam Present: soft, non tender - Routine Extremities Exam Present: no edema, non tender (feet warm to touch. ), normal capillary refill. Absent: pulses intact - Routine Skin Exam Present: intact, dry, warm - Routine Neurological Exam Present: moving all extremities, hearing grossly intact, normal speech Very difficult to arouse. - Routine Psychiatric Exam Present: cooperative. Absent: good judgment Results 11/07/16 04:54 11/07/16 04:54 Intake and Output 11/05/16 11/05/16 11/05/16 06:59 14:59 22:59 Other: Weight 198 lb 10.184 oz 11/05/16 22:52 ABG pH 7.360 ABG pCO2 52 H ABG pO2 60 L ABG HCO3 29 H ABG Total CO2 31.0 H ABG O2 Saturation 90.0 L ABG Base Excess 3.0 H Laboratory Results - last 48 hr 11/05/16 11/05/16 11/05/16 16:20 16:20 16:20 WBC 6.5 RBC 4.50 Hgb 12.4 Hct 39.1 MCV 86.9 MCH 27.6 MCHC 31.7 RDW Std Deviation 56.7 H Plt Count 153 MPV 12.0 Immature Gran % (Auto) 0.0 Neut % (Auto) 64.5 Lymph % (Auto) 24.0 [place] % (Auto) 7.9 Eos % (Auto) 3.1 Baso % (Auto) 0.5 Neut # 4.2 Lymph # 1.6 [place]y # 0.5 Eos # 0.2 Baso # 0.0 Abs Immat Gran (auto) 0.00 ABG pH ABG pCO2 ABG pO2 ABG HCO3 ABG Total CO2 ABG O2 Saturation ABG Base Excess O2 Delivery Method FiO2 (liters per min) Turbidity < 20 Sodium 141 Potassium 3.9 Chloride 105 Carbon Dioxide 27 Anion Gap 9 BUN 19.0 H Creatinine 1.1 GFR Calculation 50 BUN/Creatinine Ratio 17 Glucose 77 Calculated Osmolality 272 Calcium 8.9 Total Bilirubin 0.50 Icterus Index < 2 AST 14 ALT 27 Alkaline Phosphatase 78 Troponin I 0.019 B-Natriuretic Peptide 1320 H Total Protein 6.7 Albumin 3.8 Globulin 2.9 Albumin/Globulin Ratio 1.3 Lipase 55 Specimen Hemolysis < 15 11/05/16 11/05/16 22:52 22:52 WBC RBC Hgb Hct MCV MCH MCHC RDW Std Deviation Plt Count MPV Immature Gran % (Auto) Neut % (Auto) Lymph % (Auto) [place] % (Auto) Eos % (Auto) Baso % (Auto) Neut # Lymph # [place] # Eos # Baso # Abs Immat Gran (auto) ABG pH 7.360 ABG pCO2 52 H ABG pO2 60 L ABG HCO3 29 H ABG Total CO2 31.0 H ABG O2 Saturation 90.0 L ABG Base Excess 3.0 H O2 Delivery Method Nasal cannula, liter FiO2 (liters per min) 1 Turbidity Sodium Potassium Chloride Carbon Dioxide Anion Gap BUN Creatinine GFR Calculation BUN/Creatinine Ratio Glucose Calculated Osmolality Calcium Total Bilirubin Icterus Index AST ALT Alkaline Phosphatase Troponin I 0.024 B-Natriuretic Peptide Total Protein Albumin Globulin Albumin/Globulin Ratio Lipase Specimen Hemolysis < 15 - Imaging and Cardiology Imaging & Cardiology Narrative: 11/05/2016 CXR Findings: Motion artifact. Hazy airspace opacity in the right mid to lower lung field. No pneumothorax or obvious pleural effusion. Left lung is stable and grossly clear. Left basilar scarring. Cardiac silhouette remains mildly enlarged. Poststernotomy changes. Overlying monitoring leads. Impression: Hazy right basilar airspace disease could represent pneumonia or edema. 11/05/2016 ECG: SB, HR 56, RBBB, anterior and inferior SD, age undetermined. - EKG Interpretation EKG: sinus rhythm EKG shows: bradycardia Hospital Course This is a general summary of the patient's hospital course. For more details refer to the complete medical record. Assessment and Plan (1) Chest pain Current visit: Yes Status: Acute First 2 trop are neg. ECG shows no acute ischemia. Pt indicates pain was in epigastric area and left shoulder. She has left chest pain reproducible on palpation. Recent heart cath and stent to the Circ. Although LAD had stenosis, patent PETTY to LAD. Denies any further pain. This is unlikely cardiac pain. (2) CHF (congestive heart failure) Current visit: Yes Status: Chronic Pt appears to be euvolemic. BNP on 10/03/2016 was 2770, on 11/05/2016 was 1320. ( 900). CXR reports possible edema but lungs sounds are expiratory wheezes. no crackles. Her reported SOB was likely her lungs with wheezes, not using her O2, COPD and smoking. (3) Hypotension Current visit: Yes Status: Acute Orthostatic. Will repeat orthostatics in am when she is more awake. Will cont metoprolol tartrate 25mg BID in am. The home med list states met tart 25mg daily. It should be BID. Will need to clarify with her that she is taking correctly. (4) Atherosclerosis of coronary artery bypass graft(s), unspecified, with other forms of angina pectoris Current visit: No Status: Chronic cont ASA and Plavix and statin. (5) Atherosclerosis of [place] artery of both lower extremities Current visit: No Status: Chronic cont Plavix, ASA and statin. Recommend stop smoking. (6) Bipolar affective disorder Current visit: No Status: Chronic cont home meds. (7) COPD (chronic obstructive pulmonary disease) Current visit: No Status: Chronic cont home breathing treatments. (8) Hypothyroidism Current visit: No Status: Chronic cont synthroid. check TSH (9) Mixed hyperlipidemia Current visit: No Status: Chronic Statin managed by PCP (10) Nonrheumatic aortic valve insufficiency Current visit: No Status: Chronic mild to moderate AI. (11) Type 2 diabetes mellitus without complications Current visit: No Status: Chronic FBS and 2hr pc, cont meds. (12) Hypoxia Current visit: Yes Status: Acute Placed on O2 at 2 LNC and O2 sat up to the 90's. But pt remains lethargic. Fentanyl given about 5 hrs ago. No other meds given. AB.36/ PCO2 52 / PO2 60. She is hypoxic and hypercarbia. Placed on Bipap with O2 per settings RT judgement. Breathing treatments for wheezes. Monitor O2 sats periodically through the night. - Attestation Attestation Narrative: 11/07/16 08:03 Recommendation After examining the patient I agree with the above assessment. I am involved in the formulation of the patient's plan of care. Sepsis Assessment - Evaluation Sepsis screening result: No Definite Risk
[2016-11-06] MEDS: LEVOTHYROXINE 100 MCG TABLET PO SCH (06:49)
[2016-11-06] MEDS: ALBUTEROL 2.5mg/3ml (0.083%) NEB AEROSOL SCH ×4 (07:22→19:00)
[2016-11-06] MEDS: ASPIRIN 325 MG TABLET PO SCH (08:38)
[2016-11-06] MEDS: PREGABALIN 75 MG CAPSULE PO SCH ×2 (08:39→21:52)
[2016-11-06] MEDS: RisperiDONE 2 MG TABLET PO SCH ×2 (08:39→21:53)
[2016-11-06] MEDS: METFORMIN 500 MG TABLET PO SCH ×2 (08:39→18:40)
[2016-11-06] MEDS: CLOPIDOGREL 75 MG TABLET PO SCH ×2 (08:40)
[2016-11-06] MEDS: BUSPIRONE 5 MG TABLET PO SCH ×3 (08:40→21:54)
[2016-11-06] MEDS: TOPIRAMATE 25 MG TABLET PO SCH ×2 (08:40→21:53)
[2016-11-06] MEDS: ENOXAPARIN 40 MG/0.4 ML INJECTION SQ SCH (08:41)
[2016-11-06] MEDS ORDERED: FUROSEMIDE 20 MG TABLET PO SCH (09:00)
[2016-11-06] MEDS: NITROGLYCERIN 0.4 MG SUBLINGUAL TABLET SL PRN ×3 (12:22→13:54)
[2016-11-06] MEDS ORDERED: MAG-AL + SIM ORAL LIQUID 30ml PO PRN ×2 (13:57→18:04)
[2016-11-06] MEDS: NS 1,000 ML IV SCH (16:12)
[2016-11-06] MEDS ORDERED: LIDOCAINE 1% (10mg/ml) 30ml SDV INJ ONE (16:49)
[2016-11-06] MEDS ORDERED: HEPARIN 1,000 UNITS/500 ML PREMIX (*CVL ONLY*) IV ONE (16:49)
[2016-11-06] MEDS ORDERED: FentaNYL 100 MCG/2 ML INJECTION ONE (17:12)
[2016-11-06] MEDS ORDERED: MIDAZOLAM 2mg/2ml INJECTION ONE (17:12)
[2016-11-06] MEDS: PANTOPRAZOLE 40 MG TABLET PO SCH (17:43)
[2016-11-06] MEDS: TIOTROPIUM 18mcg/cap HANDIHALER ORAL INH SCH (17:48)
--- NOTE | 2016-11-06 17:59 | Cardiac Catheterization Report ---
DATE OF PROCEDURE November 06, 2016 The patient is a pleasant 65-year lady with coronary artery disease who was admitted with what appeared to be unstable angina and was referred for further evaluation by cardiac catheterization and possible intervention. Informed consent was obtained after explaining the procedure and the potential risks to the patient who agreed to proceed with the procedure. PROCEDURE 1. Left heart catheterization. 2. Coronary angiography. 3. Left ventriculography. 4. Bypass angiography. 5. Selective PETTY angiography. 6. Ascending aortic angiography. 7. Right femoral angiography to visualize the vessel for closure device. 8. Successful Mynx deployment for hemostasis. TECHNIQUE She was prepped and draped in the usual sterile techniques. Conscious sedation was performed using Versed and fentanyl. 1% lidocaine was used for local anesthesia. Using modified Seldinger technique, arterial access was obtained into the right femoral artery with placement of a 6-[place] arterial sheath. LEFT VENTRICULOGRAPHY Left ventriculography in single-plane DEY shallow projection showed dilated left ventricle with basal inferior [place] with ejection fraction of about 45% with no mitral regurgitation or gradient across the aortic valve. LVEDP was about 25. CORONARY ANGIOGRAPHY Left main was free of significant lesions. Left anterior descending artery had proximal 70% calcified eccentric lesion. Distal LAD showed competitive flow coming from PETTY. Left circumflex artery was patent with endovascular stent which was patent. Spontaneous dissection was present at the site of stent. However, it did not appear to be compromising blood flow and since there was a stent present at this site we did not wish to proceed with any further intervention. The right coronary artery had 80% stenosis. Collaterals were noted going from the left to the right coronary territory. PETTY to LAD was widely patent with excellent flow. Ascending aortic angiography showed no grafts going to coronaries from the aorta. Right femoral angiography showed patent common femoral, proximal SFA and profunda and therefore Mynx was used for hemostasis. IMPRESSION 1. Wall motion abnormalities as described above with ejection fraction of about 45%. 2. Coronary artery disease as described above. 3. Successful Mynx deployment for hemostasis. PLAN Medical management. ANA
[2016-11-06] MEDS ORDERED: ACETAMINOPHEN 325 MG TABLET PO PRN (18:04)
[2016-11-06] MEDS ORDERED: Bisacodyl EC TAB 5 MG TABLET PO PRN (18:04)
[2016-11-06] MEDS ORDERED: METOCLOPRAMIDE 10mg/2ml INJECTION IVP PRN (18:04)
[2016-11-06] MEDS ORDERED: MORPHINE SULFATE 4 MG SYRINGE IVP PRN ×2 (18:04)
[2016-11-06] MEDS ORDERED: LORazepam 0.5 MG TABLET PO PRN (18:04)
[2016-11-06] MEDS ORDERED: NITROGLYCERIN 0.4 MG SUBLINGUAL TABLET SL PRN (18:04)
[2016-11-06] MEDS ORDERED: ONDANSETRON 4 MG/2 ML INJECTION IVP PRN (18:04)
[2016-11-06] MEDS ORDERED: BISACODYL 10 MG SUPPOSITORY RECTALLY PRN (18:04)
[2016-11-06] MEDS ORDERED: ATROPINE 1 MG/ML INJECTION IVP PRN (18:04)
[2016-11-06] MEDS ORDERED: HYDROCODONE/APAP 7.5 MG/325 MG TABLET PO PRN (18:04)
[2016-11-06] MEDS ORDERED: PROMETHAZINE 25 MG INJECTION IVP PRN (18:04)
[2016-11-06] MEDS: FUROSEMIDE 20 MG/2 ML INJECTION IVP SCH (18:45)
[2016-11-06] MEDS ORDERED: DULOXETINE 30 MG CAPSULE PO SCH (21:00)
[2016-11-07] MEDS: NS 1,000 ML IV SCH (04:58)
[2016-11-07] MEDS: PANTOPRAZOLE 40 MG TABLET PO SCH (06:26)
[2016-11-07] MEDS: LEVOTHYROXINE 100 MCG TABLET PO SCH (06:26)
[2016-11-07] MEDS: METFORMIN 500 MG TABLET PO SCH ×2 (07:00→17:47)
[2016-11-07 07:13] VITALS: TEMP 97.4
[2016-11-07] MEDS: ALBUTEROL 2.5mg/3ml (0.083%) NEB AEROSOL SCH ×3 (07:25→14:45)
[2016-11-07] MEDS: TIOTROPIUM 18mcg/cap HANDIHALER ORAL INH SCH (08:49)
[2016-11-07] MEDS: CLOPIDOGREL 75 MG TABLET PO SCH (08:53)
[2016-11-07] MEDS: BUSPIRONE 5 MG TABLET PO SCH ×2 (08:53→16:10)
[2016-11-07] MEDS: ASPIRIN 325 MG TABLET PO SCH (08:56)
[2016-11-07] MEDS: FUROSEMIDE 20 MG/2 ML INJECTION IVP SCH ×2 (08:56→17:46)
[2016-11-07] MEDS: RisperiDONE 2 MG TABLET PO SCH (09:11)
[2016-11-07] MEDS: TOPIRAMATE 25 MG TABLET PO SCH (09:11)
[2016-11-07] MEDS: PREGABALIN 75 MG CAPSULE PO SCH (09:12)
[2016-11-07] MEDS: ENOXAPARIN 40 MG/0.4 ML INJECTION SQ SCH (09:13)
--- NOTE | 2016-11-07 14:04 | Discharge Summary ---
<Antonette Gardner - Last Filed: 11/07/16 14:33> Discharge Information Date of admission: 11/06/16 20:11 Anticipated date of discharge: 11/07/16 Attending Physician: Gregg Ruiz MD Primary care physician: Lali Padilla APRN - Procedures Procedures: Date of Exam: 11/06/16 Type of Exam(s): CA heart cath LT DATE OF PROCEDURE November 06, 2016 The patient is a pleasant 65-year lady with coronary artery disease who was admitted with what appeared to be unstable angina and was referred for further evaluation by cardiac catheterization and possible intervention. Informed consent was obtained after explaining the procedure and the potential risks to the patient who agreed to proceed with the procedure. PROCEDURE 1. Left heart catheterization. 2. Coronary angiography. 3. Left ventriculography. 4. Bypass angiography. 5. Selective PETTY angiography. 6. Ascending aortic angiography. 7. Right femoral angiography to visualize the vessel for closure device. 8. Successful Mynx deployment for hemostasis. TECHNIQUE She was prepped and draped in the usual sterile techniques. Conscious sedation was performed using Versed and fentanyl. 1% lidocaine was used for local anesthesia. Using modified Seldinger technique, arterial access was obtained into the right femoral artery with placement of a 6-Welsh arterial sheath. LEFT VENTRICULOGRAPHY Left ventriculography in single-plane DEY shallow projection showed dilated left ventricle with basal inferior akinesia with ejection fraction of about 45% with no mitral regurgitation or gradient across the aortic valve. LVEDP was about 25. CORONARY ANGIOGRAPHY Left main was free of significant lesions. Left anterior descending artery had proximal 70% calcified eccentric lesion. Distal LAD showed competitive flow coming from PETTY. Left circumflex artery was patent with endovascular stent which was patent. Spontaneous dissection was present at the site of stent. However, it did not appear to be compromising blood flow and since there was a stent present at this site we did not wish to proceed with any further intervention. The right coronary artery had 80% stenosis. Collaterals were noted going from the left to the right coronary territory. PETTY to LAD was widely patent with excellent flow. Ascending aortic angiography showed no grafts going to coronaries from the aorta. Right femoral angiography showed patent common femoral, proximal SFA and profunda and therefore Mynx was used for hemostasis. IMPRESSION 1. Wall motion abnormalities as described above with ejection fraction of about 45%. 2. Coronary artery disease as described above. 3. Successful Mynx deployment for hemostasis. PLAN Medical management. - Laboratory Labs: 11/07/16 04:54 11/07/16 04:54 Laboratory Results - last 48 hr 11/05/16 11/05/16 11/05/16 16:20 16:20 16:20 WBC 6.5 RBC 4.50 Hgb 12.4 Hct 39.1 MCV 86.9 MCH 27.6 MCHC 31.7 RDW Std Deviation 56.7 H Plt Count 153 MPV 12.0 Immature Gran % (Auto) 0.0 Neut % (Auto) 64.5 Lymph % (Auto) 24.0 [place] % (Auto) 7.9 Eos % (Auto) 3.1 Baso % (Auto) 0.5 Neut # 4.2 Lymph # 1.6 [place] # 0.5 Eos # 0.2 Baso # 0.0 Abs Immat Gran (auto) 0.00 ABG pH ABG pCO2 ABG pO2 ABG HCO3 ABG Total CO2 ABG O2 Saturation ABG Base Excess O2 Delivery Method FiO2 (liters per min) Turbidity < 20 Sodium 141 Potassium 3.9 Chloride 105 Carbon Dioxide 27 Anion Gap 9 BUN 19.0 H Creatinine 1.1 GFR Calculation 50 BUN/Creatinine Ratio 17 Glucose 77 Glucometer Calculated Osmolality 272 Calcium 8.9 Total Bilirubin 0.50 Icterus Index < 2 AST 14 ALT 27 Alkaline Phosphatase 78 Troponin I 0.019 B-Natriuretic Peptide 1320 H Total Protein 6.7 Albumin 3.8 Globulin 2.9 Albumin/Globulin Ratio 1.3 Lipase 55 TSH Specimen Hemolysis < 15 11/05/16 11/05/16 11/06/16 22:52 22:52 04:05 WBC 4.9 RBC 4.76 Hgb 12.8 Hct 41.3 MCV 86.8 MCH 26.9 MCHC 31.0 RDW Std Deviation 57.4 H Plt Count 157 MPV 12.9 H Immature Gran % (Auto) 0.0 Neut % (Auto) 50.0 Lymph % (Auto) 35.2 [place] % (Auto) 9.5 H Eos % (Auto) 4.7 H Baso % (Auto) 0.6 Neut # 2.5 Lymph # 1.7 [place] # 0.5 Eos # 0.2 Baso # 0.0 Abs Immat Gran (auto) 0.00 ABG pH 7.360 ABG pCO2 52 H ABG pO2 60 L ABG HCO3 29 H ABG Total CO2 31.0 H ABG O2 Saturation 90.0 L ABG Base Excess 3.0 H O2 Delivery Method Nasal cannula, liter FiO2 (liters per min) 1 Turbidity Sodium Potassium Chloride Carbon Dioxide Anion Gap BUN Creatinine GFR Calculation BUN/Creatinine Ratio Glucose Glucometer Calculated Osmolality Calcium Total Bilirubin Icterus Index AST ALT Alkaline Phosphatase Troponin I 0.024 B-Natriuretic Peptide Total Protein Albumin Globulin Albumin/Globulin Ratio Lipase TSH Specimen Hemolysis < 15 11/06/16 11/06/16 11/06/16 04:05 05:55 10:45 WBC RBC Hgb Hct MCV MCH MCHC RDW Std Deviation Plt Count MPV Immature Gran % (Auto) Neut % (Auto) Lymph % (Auto) [place] % (Auto) Eos % (Auto) Baso % (Auto) Neut # Lymph # [place] # Eos # Baso # Abs Immat Gran (auto) ABG pH ABG pCO2 ABG pO2 ABG HCO3 ABG Total CO2 ABG O2 Saturation ABG Base Excess O2 Delivery Method FiO2 (liters per min) Turbidity < 20 Sodium 143 Potassium 3.9 Chloride 107 Carbon Dioxide 28 Anion Gap 8 BUN 17.0 Creatinine 1.1 GFR Calculation 50 BUN/Creatinine Ratio 16 Glucose 84 Glucometer 88 Calculated Osmolality 276 Calcium 10.1 D Total Bilirubin Icterus Index < 2 AST ALT Alkaline Phosphatase Troponin I 0.024 0.018 B-Natriuretic Peptide Total Protein Albumin Globulin Albumin/Globulin Ratio Lipase TSH 2.61 Specimen Hemolysis < 15 < 15 11/06/16 11/06/16 11/06/16 11:01 13:49 21:21 WBC RBC Hgb Hct MCV MCH MCHC RDW Std Deviation Plt Count MPV Immature Gran % (Auto) Neut % (Auto) Lymph % (Auto) [place] % (Auto) Eos % (Auto) Baso % (Auto) Neut # Lymph # [place] # Eos # Baso # Abs Immat Gran (auto) ABG pH ABG pCO2 ABG pO2 ABG HCO3 ABG Total CO2 ABG O2 Saturation ABG Base Excess O2 Delivery Method FiO2 (liters per min) Turbidity Sodium Potassium Chloride Carbon Dioxide Anion Gap BUN Creatinine GFR Calculation BUN/Creatinine Ratio Glucose Glucometer 156 168 149 Calculated Osmolality Calcium Total Bilirubin Icterus Index AST ALT Alkaline Phosphatase Troponin I B-Natriuretic Peptide Total Protein Albumin Globulin Albumin/Globulin Ratio Lipase TSH Specimen Hemolysis 11/07/16 11/07/16 11/07/16 04:54 04:54 04:54 WBC 6.3 RBC 4.66 Hgb 12.7 Hct 40.0 MCV 85.8 MCH 27.3 MCHC 31.8 RDW Std Deviation 56.0 H Plt Count 151 MPV 13.1 H Immature Gran % (Auto) 0.2 Neut % (Auto) 74.9 H Lymph % (Auto) 16.0 L [place] % (Auto) 7.0 Eos % (Auto) 1.7 Baso % (Auto) 0.2 Neut # 4.7 Lymph # 1.0 [place] # 0.4 Eos # 0.1 Baso # 0.0 Abs Immat Gran (auto) 0.01 ABG pH ABG pCO2 ABG pO2 ABG HCO3 ABG Total CO2 ABG O2 Saturation ABG Base Excess O2 Delivery Method FiO2 (liters per min) Turbidity < 20 Sodium 146 H Potassium 3.8 Chloride 107 Carbon Dioxide 29 Anion Gap 10 BUN 18.0 H Creatinine 1.0 GFR Calculation 56 BUN/Creatinine Ratio 18 Glucose 117 H Glucometer Calculated Osmolality 284 H Calcium 9.5 Total Bilirubin Icterus Index < 2 AST ALT Alkaline Phosphatase Troponin I B-Natriuretic Peptide 1610 H Total Protein Albumin Globulin Albumin/Globulin Ratio Lipase TSH Specimen Hemolysis < 15 11/07/16 11/07/16 06:28 10:21 WBC RBC Hgb Hct MCV MCH MCHC RDW Std Deviation Plt Count MPV Immature Gran % (Auto) Neut % (Auto) Lymph % (Auto) [place] % (Auto) Eos % (Auto) Baso % (Auto) Neut # Lymph # [place] # Eos # Baso # Abs Immat Gran (auto) ABG pH ABG pCO2 ABG pO2 ABG HCO3 ABG Total CO2 ABG O2 Saturation ABG Base Excess O2 Delivery Method FiO2 (liters per min) Turbidity Sodium Potassium Chloride Carbon Dioxide Anion Gap BUN Creatinine GFR Calculation BUN/Creatinine Ratio Glucose Glucometer 119 157 Calculated Osmolality Calcium Total Bilirubin Icterus Index AST ALT Alkaline Phosphatase Troponin I B-Natriuretic Peptide Total Protein Albumin Globulin Albumin/Globulin Ratio Lipase TSH Specimen Hemolysis - Radiology Radiology: Date of Exam: 11/05/16 Ordering Provider: Rosaura Vaughn APRN Type of Exam(s): XR chest 1V Reason for Exam(s): shortness of air Indication: shortness of air PROCEDURE: XR chest 1V: Encounter: Initial Comparison: October 04, 2016 Findings: Motion artifact. Hazy airspace opacity in the right mid to lower lung field. No pneumothorax or obvious pleural effusion. Left lung is stable and grossly clear. Left basilar scarring. Cardiac silhouette remains mildly enlarged. Poststernotomy changes. Overlying monitoring leads. Impression: Hazy right basilar airspace disease could represent pneumonia or edema. History of Present Illness HPI: This is a 65 year old patient known to Dr. Ruiz with a history of CAD, Hx CABG with recent stent to the Circumflex artery, PVD with recent stent to the Right SFA, Cardiomyopathy, EF 43%, SHF, HTN, DM T2, DSLD, carotid artery disease , and small AAA. She has COPD and wears O2 at 2LNC at home and continues to smoke. When EMS arrived. Cardiac procedures: 02/06/2016 heart cath: EF 30-35%, LVEDP 24, LAD prox 70% stenosis, distal LAD showed competitive flow from PETTY, Cx occluded proximally w late filling of the Cx, PETTY to LAD patent, small AAA. 04/17/2016 PTCA/stent to the Cx with drug eluding stents x3. 02/06/2016 LE angiogram: R ext iliac 40%, L SFA 75-80%, L popliteal 70%, L anterior and posterior tibial occluded, R SFA 70%, R anterior and posterior tibial occluded. 09/11/2016. Successful [employer] and stent of the right SFA using a 5.0 x 150 drug- eluted Admiral Impact balloon and an 8.0 x 150 bare-metal self-expanding EV3 Protg stent. 10/04/2016 echo: EF 43%, BAD, LVH, mild AR/MR/WY, mild to moderate AI, AV calcified. Moderate TR, moderate PHTN, PAP 50. She had been up and around when about 9am she developed chest/epigastric pain. She is pointing to her epigastric area. Later in the day the pain was in her left shoulder as well. Denies SOB, diaphoresis, palpitations. when the pain worsened she thought she may be having a heart attack and called 911. She did not take a Ntg. Pt states she took all her morning meds including Plavix. When EMS arrived she was orthostatic with SBP dropping to the 70's therefore no Ntg was given but fentanyl was given before 1600 which relieved her pain but also made her lethargic per ER report. She is still lethargic at 10pm. She can not awaken without much effort and can answer one question then returns back to sleep. Per ER report, she has been without her oxygen for the past several days. She reported to ER that she had SOB and edema. Her O2 sat was 85% on room and placed on O2 at 2LNC and O2 sat in the 90's. BNP 1332; CXR indicates CHF vs infiltrate however WBC normal and patient showing no indication for infection. Lungs with crackles and wheezes. Home oxygen at 2L/NC however has been without supplemental oxygen this week. Chest pain free since arrival after having been given fentanyl by EMS ; patient states has been having "heart burn" at home this week but has been compliant with meds. Troponin .019; Patient was admitted in September 2016 and troponin levels at that time 0.025, .021 and .023. Currently pt is very sleepy. she is laying almost flat without SOB. Lungs with wheezes. no edema. Denies chest pain or any pain. Her left chest area is painful with light palpation. She has been incontinent of urine. Pt first seen by Dr. Ruiz on 11/06/2016. Hospital Course This is a general summary of the patient's hospital course. For more details refer to the complete medical record. Time spent with patient: 25 - 35 minutes Exam Vital signs: Temperature 97.4 F 11/07/16 07:12 Pulse Rate 78 11/07/16 11:49 Respiratory Rate 18 11/07/16 11:49 Blood Pressure 76/48 11/07/16 11:37 Pulse Oximetry 84 L 11/07/16 11:37 Oxygen Delivery Method Nasal Cannula Oxygen Flow Rate 2 - Constitutional no acute distress, well nourished, cooperative - Routine HEENT Exam Head: Present: normocephalic ENT: Present: mucous membranes moist - Routine Neck Exam Present: carotid bruit. Absent: JVD - Routine Chest/Breast/Axilla Exam Chest wall: Present: tenderness - Routine Respiratory Exam Present: CTA bilaterally. Absent: rales, wheezes - Routine Cardiovascular Exam Present: RRR, murmur (II/). Absent: JVD - Routine Abdominal Exam Present: soft, normoactive bowel sounds - Routine Extremities Exam Present: edema - Routine Skin Exam Present: intact, dry, warm - Routine Neurological Exam Present: alert, oriented X3 - Routine Psychiatric Exam Present: normal affect, normal thought process Results 11/07/16 04:54 11/07/16 04:54 Cardiac Enzymes 11/07/16 Range/Units 04:54 B-Natriuretic Peptide 1610 H (0-175) pg/mL Coagulation 11/07/16 Range/Units 04:54 B-Natriuretic Peptide 1610 H (0-175) pg/mL CBC 11/07/16 Range/Units 04:54 WBC 6.3 (4.5-11.0) T/MM3 RBC 4.66 (4.00-5.20) M/MM3 Hgb 12.7 (12-16) GM/DL Hct 40.0 (36-46) % Plt Count 151 (130-400) T/MM3 Neut # 4.7 (1.8-7.7) T/MM3 Lymph # 1.0 (1-4.8) T/MM3 [place] # 0.4 (0-0.8) T/MM3 Eos # 0.1 (0-0.5) T/MM3 Baso # 0.0 (0-0.2) T/MM3 Comprehensive Metabolic Panel 11/07/16 Range/Units 04:54 Sodium 146 H (134-144) MEQ/L Potassium 3.8 (3.6-5) MEQ/L Chloride 107 (98-107) MEQ/L Carbon Dioxide 29 (22-30) MEQ/L BUN 18.0 H (7-17) MG/DL Creatinine 1.0 (0.7-1.2) MG/DL Glucose 117 H (65-110) MG/DL Calcium 9.5 (8.4-10.2) MG/DL Intake and Output 11/06/16 11/07/16 11/07/16 22:59 06:59 14:59 Intake Total 1722.5 / 1722.5 323.75 / 323.75 Balance 1722.5 / 1722.5 323.75 / 323.75 Intake: IV 922.5 / 922.5 323.75 / 323.75 Normal Saline 1,000 ml @ 922.5 / 922.5 323.75 / 323.75 75 mls/hr IV .[id number] MATT Rx#:[id number] Oral 800 / 800 Other: # Voids 1 # Incontinent Voids 1 Weight 196 lb 3.382 oz Patient Weight 11/08/16 06:59 Weight 196 lb 3.382 oz - Imaging and Cardiology Echo: report reviewed Cardiac cath: report reviewed EKG results: image reviewed Discharge Plan - Med Rec/Dispo Referrals/Follow Up: Gregg Ruiz MD [Physician] - 11/27/16 9:20 am [place] Instructions: [facility] [place] Heart Cath, Heart Failure (GEN), Hypotension (GEN) Prescriptions: Continue Trazodone HCl 100 mg PO HS #0 risperiDONE [Risperidone] 3 mg PO BID #0 Furosemide 20 mg PO DAILY #0 Metoprolol Tartrate 25 mg PO DAILY #0 Metformin HCl 500 mg PO BIDWM #0 tab Aspirin [Aspir 81] 81 mg PO DAILY #0 tab Buspirone HCl 5 mg PO TID #0 Clopidogrel Bisulfate [Plavix] 75 mg PO DAILY 30 Days #30 tab Benztropine Mesylate 1 mg PO BID PRN PRN Reason: Extrapyramidal symptoms Albuterol Sulfate [Proair Hfa] 1 puff INH Q4H PRN PRN Reason: Prn Orders Tiotropium Handihaler [Spiriva] 1 cap INH DAILY Methocarbamol [Robaxin] 500 mg PO QID PRN PRN Reason: Prn Orders Fluticasone/Salmeterol 250/50 [Advair 250-50 Diskus] 1 puff INH BID Topiramate 50 mg PO BID #0 Duloxetine [Cymbalta] 90 mg PO HS #0 cap Levothyroxine Tab [Synthroid] 100 mcg PO ACB Pregabalin Cap [Lyrica] 75 mg PO BID Discontinued Clopidogrel [Plavix] 1 tab PO DAILY - Disposition 01 Discharged Home, Self-Care <Gregg Ruiz - Last Filed: 11/08/16 16:27> Discharge Information Date of admission: 11/06/16 20:11 Attending Physician: Gregg Ruiz MD Primary care physician: Lali Padilla APRN - Laboratory Labs: 11/07/16 04:54 11/07/16 04:54 Hospital Course This is a general summary of the patient's hospital course. For more details refer to the complete medical record. Exam Vital signs: Temperature 97.4 F 11/07/16 07:12 Pulse Rate 58 L 11/07/16 15:00 Respiratory Rate 19 11/07/16 15:00 Blood Pressure 123/60 11/07/16 13:23 Pulse Oximetry 94 11/07/16 14:45 Oxygen Delivery Method Nasal Cannula Oxygen Flow Rate 2 Results 11/07/16 04:54 11/07/16 04:54 Discharge Plan - Med Rec/Dispo - Attestation Attestation Narrative: 11/08/16 16:27 Recommendation After examining the patient I agree with the above assessment. I am involved in the formulation of the patient's plan of care.
[2016-11-07 14:52] VITALS: O2SAT 94
[2016-11-07 16:10] VITALS: BP 123/60; PULSE 58; RESP 19
== END 2016-11-07 18:25 | disposition home or self-care (01) | DRG 287 ==
LOC: MED 15:20 → ED 15:20 → MED 18:29 → SRG 11-06 17:46
PROVIDERS: ADMIT Internal Medicine Cardiovascular Disease; ATTEND Internal Medicine Cardiovascular Disease